=== PATIENT | male | born 1965 | race Caucasian/White ===

== ENCOUNTER 2025-01-02 12:27 | Inpatient (IN) | payer BC ==
[2025-01-02] MEDS: SODIUM CHLORIDE 0.9% 500 ML 500 ML IV STA (12:57)
[2025-01-02 13:10] LABS: Basophils # (A) 0.05 10*3/uL (0.00-0.10); Basophils % (A) 0.5 %; Eosinophils % (A) 0.9 %; HCT 40.9 % (39.6-50.0); HGB 14.4 g/dL (13.0-17.0); Lymphocytes # (A) 2.65 10*3/uL (0.90-5.00); Lymphocytes % (A) 25.1 %; MCH 31.2 pg (27.0-32.0); MCHC 35.2 g/dL (32.0-37.0); MCV 88.5 fL (80.0-97.0); Mean Platelet Volume 8.8 fL (9.5-12.2); Monocytes # (A) 0.63 10*3/uL (0.20-1.00); Neutrophils % (A) 67.2 %; Platelet Count 270 10*3/uL (140-440); RBC 4.62 10*6/uL (4.40-5.60); RDW 13.7 % (11.5-14.5); WBC 10.56 10*3/uL (4.50-10.00)
[2025-01-02 13:25] LABS: ALT 20 U/L (4-49); AST 21 U/L (17-59); African American GFR (CKD) >90 (>60 ml/min/1.73 sqM); Albumin 4.5 g/dL (3.5-5.0); Alkaline Phosphatase 67 U/L (38-126); Anion Gap 7 mmol/L; Blood Urea Nitrogen 17 mg/dL (9-20); Calcium 9.7 mg/dL (8.4-10.2); Carbon Dioxide 26 mmol/L (22-30); Chloride 103 mmol/L (98-107); Creatine Kinase 140 U/L (55-170); Glucose 175 mg/dL (74-99); Non-African American GFR(CKD) >90 (>60 ml/min/1.73 sqM); Potassium 4.5 mmol/L (3.5-5.1); Sodium 136 mmol/L (137-145); Total Bilirubin 0.4 mg/dL (0.2-1.3); Total Protein 7.5 g/dL (6.3-8.2)
[2025-01-02 13:27] LABS: INR 0.9 (<1.2); Partial Thromboplastin Time 25.9 sec (22.0-30.0); Prothrombin Time 10.3 sec (10.0-12.5)
--- NOTE | 2025-01-02 13:44 | ED ---
General Adult HPI - General Chief complaint: Neuro Symptoms/Deficit Stated complaint: L arm numbness, weakness Time Seen by Provider: 01/02/25 12:35 Source: patient, family, RN notes reviewed, old records reviewed Mode of arrival: ambulatory Limitations: no limitations - History of Present Illness Initial comments: This is a 59-year-old male who presents to the emergency department stating that he has had left arm weakness that has been progressing since August. Patient states has been seeing a chiropractor thinking it was nerve but the symptoms got worse so he decided come to the emergency department. Patient is also noted while he was working yesterday he felt like where he was standing was swaying [id number] which he is never experienced before and he does state today that he just does not feel right but he cannot really describe it. Patient denies a headache patient denies any focal numbness. Patient only weakness is in the lef t arm. Patient has a little bit of left-sided neck pain. Patient denies chest pain or pressure. Patient denies any difficulty breathing shortness of breath. Patient has any recent fever chills or cough. Patient has abdominal pain patient has nausea vomiting diarrhea - Related Data Home Medications Medication Instructions Recorded Confirmed No Known Home Medications 01/02/25 01/02/25 Allergies Allergy/AdvReac Type Severity Reaction Status Date / Time No Known Allergies Allergy Verified 01/02/25 14:04 Review of Systems ROS Statement: Those systems with pertinent positive or pertinent negative responses have been documented in the HPI. ROS Other: All systems not noted in ROS Statement are negative. Past Medical History History of Any Multi-Drug Resistant Organisms: None Reported Past Surgical History: Tonsillectomy Past Psychological History: No Psychological Hx Reported Smoking Status: Current every day smoker Past Alcohol Use History: Occasional Past Drug Use History: None Reported General Exam - General Exam Comments Initial Comments: GENERAL: Patient is well-developed and well-nourished. Patient is nontoxic and well- hydrated and is in no acute distress. ENT: Neck is soft and supple. No significant lymphadenopathy is noted. Oropharynx is clear. Moist mucous membranes. Neck has full range of motion without eliciting any pain. EYES: The sclera were anicteric and conjunctiva were pink and moist. Extraocular movements were intact and pupils were equal round and reactive to light. Eyelids were unremarkable. PULMONARY: Unlabored respirations. Good breath sounds bilaterally. No audible rales rhonchi or wheezing was noted. CARDIOVASCULAR: There is a regular rate and rhythm without any murmurs gallops or rubs. ABDOMEN: Soft and nontender with normal bowel sounds. SKIN: Skin is clear with no lesions or rashes and otherwise unremarkable. NEUROLOGIC: Patient is alert and oriented x3. Cranial nerves II through XII are grossly intact. Left arm weakness 2 out of 5. Normal speech, volume and content. Symmetrical smile. MUSCULOSKELETAL: Patient's left arm is got significant weakness in the client account manager and in right using the arm. Patient's weakness is 2 out of 5. LYMPHATICS: No significant lymphadenopathy is noted PSYCHIATRIC: Normal psychiatric evaluation. Limitations: no limitations Course Vital Signs 01/02/25 01/02/25 01/02/25 12:29 14:11 15:29 Temperature 98.1 F Pulse Rate 107 H 89 83 Respiratory 18 20 20 Rate Blood Pressure 170/96 155/93 165/112 O2 Sat by Pulse 97 96 96 Oximetry Medical Decision Making - Medical Decision Making EKG is interpreted by myself. EKG shows sinus rhythm at 98 bpm KS interval is 168 QRS is 92 QT interval is 326 QTc is 382. Patient EKG shows no ST segment elevation or depression. Was pt. sent in by a medical professional or institution (, ASHLEY, BOTTLING MACHINE OPERATOR, urgent care, hospital, or correction...) When possible be specific @ -No Did you speak to anyone other than the patient for history (EMS, parent, family, police, friend...)? What history was obtained from this source @ -No Did you review nursing and triage notes (agree or disagree)? Why? @ -I reviewed and agree with nursing and triage notes Were old charts reviewed (outside hosp., previous admission, EMS record, old EKG, old radiological studies, urgent care reports/EKG's, correction records)? Report findings @ -No old charts were reviewed Differential Diagnosis? @ -Differential CVA Ischemic stroke, hemorrhagic stroke, brain tumor, atypical migraine, Wernicke's encephalopathy, seizure, multiple sclerosis, meningitis, encephalitis, hypoglycemia, Guillain-Ng, electrolytes disturbance, myasthenia gravis.... This is not meant to be an all-inclusive list EKG interpreted by me (3pts min.). @ -As above X-rays interpreted by me (1pt min.). @ -None done CT interpreted by me (1pt min.). @ -CT of the brain shows a possible acute stroke in the right posterior frontal lobe. CT angiogram shows severe stenosis in bilateral internal carotid arteries U/S interpreted by me (1pt. min.). @ -None done What testing was considered but not performed or refused? (CT, X-rays, U/S, labs)? Why? @ -None What meds were considered but not given or refused? Why? @ -None Did you discuss the management of the patient with other professionals (professionals i.e. Dr., PA, BOTTLING MACHINE OPERATOR, lab, RT, psych nurse, social services technician, bakery worker conveyor line, teacher, marine safety officer, catalytic case operator)? Give summary @ -I spoke with Dr. Roberts doctor, will agreed to admit the patient. I spoke with Dr. Rivas she will agree to be on consult. Dr. Hill will also be on con sult. Was smoking cessation discussed for >3mins.? @ -No Was critical care preformed (if so, how long)? @ -No Were there social determinants of health that impacted care today? How? (Homelessness, low income, unemployed, alcoholism, drug addiction, transportation, low edu. Level, literacy, decrease access to med. care, long term, rehab)? @ -No Was there de-escalation of care discussed even if they declined (Discuss DNR or withdrawal of care, Hospice)? DNR status @ -No What co-morbidities impacted this encounter? (DM, HTN, Smoking, COPD, CAD, Cancer, CVA, ARF, Chemo, Hep., AIDS, mental health diagnosis, sleep apnea, morbid obesity)? @ -None Was patient admitted / discharged? Hospital course, mention meds given and route, prescriptions, significant lab abnormalities, going to OR and other pertinent info. @ -Patient continued to have left arm weakness but no other symptoms and no new symptoms. Patient will be admitted to Dr. Roberts with a consult to Dr. Sergio Rivas. Undiagnosed new problem with uncertain prognosis? @ -No Drug Therapy requiring intensive monitoring for toxicity (Heparin, Nitro, Insulin, Cardizem)? @ -No Were any procedures done? @ -No Diagnosis/symptom? @ -CVA Acute, or Chronic, or Acute on Chronic? @ -Acute Uncomplicated (without systemic symptoms) or Complicated (systemic symptoms)? @ -Complicated Side effects of treatment? @ -No Exacerbation, Progression, or Severe Exacerbation? @ -No Poses a threat to life or bodily function? How? (Chest pain, USA, [place], pneumonia, PE, COPD, DKA, ARF, appy, cholecystitis, CVA, Diverticulitis, Homicidal, Suicidal, threat to staff... and all critical care pts) @ -Yes this could lead to a further stroke and significant morbidity Diagnosis/symptom? @ -Carotid artery stenosis bilaterally Acute, or Chronic, or Acute on Chronic? @ -Acute Uncomplicated (without systemic symptoms) or Complicated (systemic symptoms)? @ -Complicate Side effects of treatment? @ -None Exacerbation, Progression, or Severe Exacerbation] @ -No Poses a threat to life or bodily function? @ -Yes this can lead to a stroke and morbidity or mortality - Lab Data Result diagrams: 01/02/25 12:55 01/02/25 12:55 Lab Results 01/02/25 01/02/25 01/02/25 Range/Units 12:55 12:55 12:55 WBC 10.56 H (4.50-10.00) 10*3/uL RBC 4.62 (4.40-5.60) 10*6/uL Hgb 14.4 (13.0-17.0) g/dL Hct 40.9 (39.6-50.0) % MCV 88.5 (80.0-97.0) fL MCH 31.2 (27.0-32.0) pg MCHC 35.2 (32.0-37.0) g/dL Plt Count 270 (140-440) 10*3/uL MPV 8.8 L (9.5-12.2) fL Immature Gran % (Auto) 0.3 % Neutrophils % 67.2 % Lymphocytes % 25.1 % Monocytes % 6.0 % Eosinophils % 0.9 % Basophils % 0.5 % Immature Gran # 0.03 (0.00-0.04) 10*3/uL Neutrophils # 7.10 (1.80-7.70) 10*3/uL Lymphocytes # 2.65 (0.90-5.00) 10*3/uL Monocytes # 0.63 (0.20-1.00) 10*3/uL Eosinophils # 0.10 (0.04-0.35) 10*3/uL Basophils # 0.05 (0.00-0.10) 10*3/uL PT 10.3 (10.0-12.5) sec INR 0.9 (<1.2) APTT 25.9 (22.0-30.0) sec Sodium 136 L (137-145) mmol/L Potassium 4.5 (3.5-5.1) mmol/L Chloride 103 (98-107) mmol/L Carbon Dioxide 26 (22-30) mmol/L Anion Gap 7 mmol/L BUN 17 (9-20) mg/dL Creatinine 0.84 (0.66-1.25) mg/dL Est GFR (CKD-EPI)AfAm >90 (>60 ml/min/1.73 sqM) Est GFR (CKD-EPI)NonAf >90 (>60 ml/min/1.73 sqM) Glucose 175 H (74-99) mg/dL Calcium 9.7 (8.4-10.2) mg/dL Magnesium 2.0 (1.6-2.3) mg/dL Total Bilirubin 0.4 (0.2-1.3) mg/dL AST 21 (17-59) U/L ALT 20 (4-49) U/L Alkaline Phosphatase 67 (38-126) U/L Creatine Kinase 140 (55-170) U/L Troponin I (0.000-0.034) ng/mL Total Protein 7.5 (6.3-8.2) g/dL Albumin 4.5 (3.5-5.0) g/dL TSH 1.810 (0.465-4.680) mIU/L Influenza Type A (PCR) (Not Detectd) Influenza Type B (PCR) (Not Detectd) RSV (PCR) (Not Detectd) SARS-CoV-2 (PCR) (Not Detectd) 01/02/25 01/02/25 Range/Units 12:55 12:55 WBC (4.50-10.00) 10*3/uL RBC (4.40-5.60) 10*6/uL Hgb (13.0-17.0) g/dL Hct (39.6-50.0) % MCV (80.0-97.0) fL MCH (27.0-32.0) pg MCHC (32.0-37.0) g/dL Plt Count (140-440) 10*3/uL MPV (9.5-12.2) fL Immature Gran % (Auto) % Neutrophils % % Lymphocytes % % Monocytes % % Eosinophils % % Basophils % % Immature Gran # (0.00-0.04) 10*3/uL Neutrophils # (1.80-7.70) 10*3/uL Lymphocytes # (0.90-5.00) 10*3/uL Monocytes # (0.20-1.00) 10*3/uL Eosinophils # (0.04-0.35) 10*3/uL Basophils # (0.00-0.10) 10*3/uL PT (10.0-12.5) sec INR (<1.2) APTT (22.0-30.0) sec Sodium (137-145) mmol/L Potassium (3.5-5.1) mmol/L Chloride (98-107) mmol/L Carbon Dioxide (22-30) mmol/L Anion Gap mmol/L BUN (9-20) mg/dL Creatinine (0.66-1.25) mg/dL Est GFR (CKD-EPI)AfAm (>60 ml/min/1.73 sqM) Est GFR (CKD-EPI)NonAf (>60 ml/min/1.73 sqM) Glucose (74-99) mg/dL Calcium (8.4-10.2) mg/dL Magnesium (1.6-2.3) mg/dL Total Bilirubin (0.2-1.3) mg/dL AST (17-59) U/L ALT (4-49) U/L Alkaline Phosphatase (38-126) U/L Creatine Kinase (55-170) U/L Troponin I <0.012 (0.000-0.034) ng/mL Total Protein (6.3-8.2) g/dL Albumin (3.5-5.0) g/dL TSH (0.465-4.680) mIU/L Influenza Type A (PCR) Not Detected (Not Detectd) Influenza Type B (PCR) Not Detected (Not Detectd) RSV (PCR) Not Detected (Not Detectd) SARS-CoV-2 (PCR) Not Detected (Not Detectd) Critical Care Time Critical Care Time: Yes Total Critical Care Time: 35 Disposition Clinical Impression: Cerebrovascular accident (CVA), Carotid artery stenosis Disposition: ADMITTED IP TO THIS HOSP Referrals: None,Stated [Primary Care Provider] - 1-2 days Time of Disposition: 15:41
[2025-01-02 13:47] LABS: Influenza A Not Detected (Not Detectd); Influenza B Not Detected (Not Detectd); RSV Not Detected (Not Detectd)
--- NOTE | 2025-01-02 13:47 | XR ---
EXAMINATION TYPE: XR chest 2V DATE OF EXAM: 01/02/2025 1:40 PM COMPARISON: None. CLINICAL INDICATION: Male, 59 years old with history of altered mental status, TECHNIQUE: XR chest 2V view(s) obtained. FINDINGS: The heart size is normal. The pulmonary vasculature is normal. The lungs are clear. IMPRESSION: 1. No acute pulmonary process. [facility], , 01/02/2025 1:44 PM
--- NOTE | 2025-01-02 14:10 | CT ---
EXAMINATION TYPE: CT brain amada wo con DATE OF EXAM: 01/02/2025 COMPARISON: None CLINICAL INDICATION: Male, 59 years old with history of Neuro deficit, acute, stroke suspected; PHH, AMS TECHNIQUE: CT scan of the head and cervical spine are performed without contrast. CT DLP: 1450.[address] CTDI: mGy Automated exposure control for dose reduction was used. Findings: Head CT: Ventricles, basal cisterns and sulci over convexities within normal limits and there is no mass, mass effect or shift of midline structures. There is loss of the russ-white differentiation in the posterior right frontal lobe consistent with a developing acute infarct. There is no acute intra or extra-axial hemorrhage. Posterior fossa including the brainstem, fourth ventricle and cerebellar pontine angles are grossly n ormal. The intraorbital contents appear normal and symmetric. Visualized paranasal sinuses are well aerated. CT cervical spine: Craniovertebral junction relationships and prevertebral soft tissues are normal. The cervical vertebral segments are normal in height and alignment and there is no fracture subluxati on. There is marked anterior flowing osteophytes at the C5, C6 and C7 levels. There is mild disc space na rrowing at C5-6 and C6-7. At the C3-4 and C4-5 discs are well preserved in height. There is mild ante rior hypertrophic spurring indicating mild degenerative disc disease. There is mild degeneration of the uncovertebral joints at C5-6 and C6-7. The bony cervical canal is widely patent and there is no bony encroachment of the neural foramina. The paraspinal soft tissues unremarkable. IMPRESSION: 1. Head CT: Acute cortical and subcortical infarct in the posterior right frontal lobe. MRI would be useful for further evaluation. 2. No acute bleed or mass effect intracranially. 3. CT cervical spine: No acute trauma. Mild multilevel degenerative disc disease as described above. The emergency room physician Dr. Gutierres was notified as important finding by phone on 01/12/2025 at appr oximately 1:54 PM. [facility], Workstation: mobile mum, 01/02/2025 2:07 PM
--- NOTE | 2025-01-02 15:04 | CT ---
EXAMINATION TYPE: CT angio head neck DATE OF EXAM: 01/02/2025 COMPARISON: None CLINICAL INDICATION: Male, 59 years old with history of Neuro deficit, acute, stroke suspected; PHH, AMS TECHNIQUE: CTA scan of the head and neck is performed with IV Contrast, patient injected with 65 mL of Isovue 370, axial images are obtained, coronal and sagittal reformatted images are reviewed. 3D re constructed images are created on an independent workstation and reviewed. CT DLP: 574.[address] CTDI: mGy Automated exposure control for dose reduction was used. NASCET criteria was used in interpretation of this exam? FINDINGS: The brachiocephalic origins are widely patent. There is a critical string like medical stenosis in the proximal right internal carotid artery. There is a heavily calcified plaque in the left carotid bifurcation and there is a string-like" focal sten osis in the proximal left internal carotid artery. The vertebral arteries are patent and the left vertebral artery is dominant. Intracranially, there is no segmental occlusion, sizable aneurysm sac or vascular malformation. IMPRESSION: Critical focal string like stenoses in both the proximal right and left internal carotid arteries. Emergency room physician was notified as important finding [facility], , 01/02/2025 3:02 PM
[2025-01-02] MEDS ORDERED: ACETAMINOPHEN TAB 500 MG TAB PO PRN (15:59)
[2025-01-02] MEDS: ALPRAZolam 0.25 MG TAB PO PRN (16:21)
[2025-01-02] MEDS: ASPIRIN 325 MG TAB PO STA (16:21)
[2025-01-02] MEDS: NICOTINE 14MG/24HR PATCH TRANSDERM SCH (16:22)
--- NOTE | 2025-01-02 17:28 | P.CNNES ---
History of Present Illness Consult date: 01/02/25 Requesting physician: Andrea Gutierres Reason for Consult: cva History of Present Illness: This is a 59-year-old gentleman who presents to the emergency department because of aggressive worsening of the left arm weakness. Patient states that he has been having left arm weakness over the past 2 months that is progressively getting worse. He has left neck pain that radiates down all the way down to the entire hand that been going on for 2-month and he has been seeing a chiropractor as a result and has been having his neck manipulated as a result. He denies any neck manipulation prior to 2-month ago or prior to his symptoms. He denies any history of stroke. Patient denies any history of stroke. He denies any n umbness of the left upper extremity, any visual changes, any speech difficulty, any neck trauma. Denies any weakness or numbness in the lower extremity. He smokes cigarettes and 1 pack can last him up to 1 week. Denies any illicit drug use. He is not on any antiplatelet. Denies any history of atrial fibrillation. Some of the workup during this hospital visit consisted of: Blood pressure on initial presentation is 170/96. TSH is 1.810 I reviewed the rest of the lab workup CT of the head is reported as acute cortical and subcortical infarct in the posterior right frontal lobe. MRI would be useful for further evaluation. No acute bleed or mass effect intracranial. I personally reviewed CT and I felt there is a ?hypodensity in the right frontal but I would have expected it to be more prominent since it has been going on for [address] cervical spine is reported as no acute trauma. Mild multilevel degenerative disc disease. CT angiography of the head and neck is reported as critical focal string-like stenosis in both proximal right and left internal carotid artery. No IV thrombolytics since outside the window and the risk outweigh the benefit. Review of Systems As per HPI Past Medical History History of Any Multi-Drug Resistant Organisms: None Reported Past Surgical History: Tonsillectomy Past Psychological History: No Psychological Hx Reported Smoking Status: Current every day smoker Past Alcohol Use History: Occasional Past Drug Use History: None Reported Medications and Allergies Home Medications Medication Instructions Recorded Confirmed Type No Known Home Medications 01/02/25 01/02/25 History Allergies Allergy/AdvReac Type Severity Reaction Status Date / Time No Known Allergies Allergy Verified 01/02/25 14:04 Physical Examination - Vital Signs Vital Signs: Vital Signs Temp Pulse Resp BP Pulse Ox 01/02/25 16:22 85 20 147/89 96 01/02/25 15:29 83 20 165/112 96 01/02/25 14:11 89 20 155/93 96 01/02/25 12:29 98.1 F 107 H 18 170/96 97 Intake and Output 01/02/25 01/02/25 01/02/25 06:59 14:59 22:59 Other: Weight 86.183 kg GENERAL: The patient is lying in bed and is not in acute distress. NEUROLOGICAL: Higher mental function: The patient is awake, alert, oriented to self, place and time. Patient is following commands. No aphasia and no neglect. Cranial nerves: The pupils are round, equal and reactive to light and acco mmodation. Visual sheriff are full to confrontation throughout. Extraocular movement is intact no nystagmus is noted. Facial sensation is normal to touch throughout. The facial strength is normal throughout. Hearing is normal bilaterally to hand rub. Tongue is midline and moved [id number] without any difficulty. No dysarthria is noted. Shoulder shrug is normal bilaterally. Motor: The strength is left upper extremity predominately left arm is 4-4+, left hand client consultant is 3-4- and left finger extension are 1-2. Otherwise strength are 5 over 5 throughout. Decrease tone in the left upper extremity. Normal bulk. Cerebellum: Normal finger to nose on the right but hard to perform on the left because of weakness. Sensation: Sensation is normal to touch throughout. Reflexes (right/left): brisk reflex of the uppers and patellar 3+. Ankles are 2+. Plantars are mute bilaterally. Results - Laboratory Findings CBC and BMP: 01/02/25 12:55 01/02/25 12:55 Abnormal Lab Findings: Abnormal Labs 01/02/25 01/02/25 12:55 12:55 WBC 10.56 H MPV 8.8 L Sodium 136 L Glucose 175 H Assessment and Plan Assessment: This is a 59-year-old gentleman who presents to the emergency department because of worsening weakness of the left upper extremity,. He has been having weakness over the left upper extremity with left neck pain and the neck pain radiates down over to the left hand and his he has been seeing a chiropractor over the [facility] 2 months as a result. CT of the head is reported as acute cortical to subcortical infarct in the posterior right frontal and the CT angiography is reported as critical focal string-like stenosis in both proximal bilateral carotid arteries. Left upper extremity weakness predominantly in the left forearm and hand with left neck pain with radicular symptoms: CT of the head reveals suspicious of acute to subacute stroke over the right frontal significant carotid stenosis this seems more suspicious for subacute stroke. I am also concerned about cervical radiculopathy/myelopathy Significant bilateral carotid stenosis on CT angiography Hypertensive urgency Tobacco use Plan: MRI of the brain with and without is ordered by the primary team I ordered MRI of the cervical spine In the ED team the patient was given aspirin 325 once then was started on aspirin 325 daily as well as Plavix 75 mg daily. Prior to this patient was not on any antiplatelet. I started the patient on Lipitor 80 mg nightly for secondary stroke prophylaxis Continue neurochecks Cardiac monitoring I ordered a 2D echo Lipid panel is ordered and is pending If MRI of the cervical spine reveals significant cervical stenosis and myelopathy then recommend orthopedic consultation PT OT and [facility] are consulted Vascular surgery team is consulted Patient was counseled on tobacco cessation Defer the rest of the medical management the primary and other For DVT prophylaxis patient started on subcu heparin The plan is discussed with patient and ED physician. Thank you for the consultation. Time with Patient: Greater than 30
[2025-01-02] MEDS: ATORVASTATIN 80 MG TAB PO SCH (20:43)
[2025-01-02] MEDS: HEPARIN SODIUM,PORCINE 5,000 UNIT/ML 1 ML VIAL SQ SCH (20:43)
--- NOTE | 2025-01-02 20:54 | P.GSCN ---
History of Present Illness Consult date: 01/02/25 History of present illness: Jose is a 59-year-old male who presents to the ER today with worsening left arm weakness. He states that initially in the past 2 months on September 17 he woke up with weakness of his left extremity that was new in onset that he had never had previously. Initially thought was due to sleeping the way he did. Due to this he initially tried chiropractic therapies with neck manipulations and has had continued and worsening of his weakness through his arm to a point where he cannot perform any fine motor skill. He does continue to smoke. He denies any issues with the lower extremity, history of trauma or visual changes or speech difficulty. Past Medical History History of Any Multi-Drug Resistant Organisms: None Reported Past Surgical History: Tonsillectomy Past Psychological History: No Psychological Hx Reported Smoking Status: Current every day smoker Past Alcohol Use History: Occasional Past Drug Use History: None Reported Medications and Allergies Home Medications Medication Instructions Recorded Confirmed Type No Known Home Medications 01/02/25 01/02/25 History Allergies Allergy/AdvReac Type Severity Reaction Status Date / Time No Known Allergies Allergy Verified 01/02/25 14:04 Surgical - Exam Vital Signs Temp Pulse Resp BP Pulse Ox 98.1 F 107 H 18 170/96 97 01/02/25 12:29 01/02/25 12:29 01/02/25 12:29 01/02/25 12:29 01/02/25 12:29 GENERAL:Patent is well-developed and well-nourished. Patient is nontoxic and well-hydrated and is in no acute distress ENT:Neck is soft and supple. No significant lymphadenopathy is noted. EYES:The sclera were anicteric and conjunctiva were pink and moist PULMONARY:Unlabored respirations. CARDIOVASCULAR:There is a regular rate and rhythm BDOMEN:Soft and nontender with normal bowel sounds. SKIN:Skin is clear with no lesions or rashes and otherwise unremarkable. NEUROLOGIC:Patient is alert and oriented x3. Cranial nerves II through XII are grossly intact. Left arm weakness 2 out of 5. Difficulty with pincer LYMPHATICS:No significant lymphadenopathy is noted PSYCHIATRIC:Normal psychiatric evaluation. VASCULAR: Palpable radial, femoral, dorsalis pedis and posterior tibial pulses bilaterally Results - Labs 01/02/25 12:55 01/02/25 12:55 Abnormal Lab Results - Last 24 Hours (Table) 01/02/25 01/02/25 Range/Units 12:55 12:55 WBC 10.56 H (4.50-10.00) 10*3/uL MPV 8.8 L (9.5-12.2) fL Sodium 136 L (137-145) mmol/L Glucose 175 H (74-99) mg/dL Diabetes panel 01/02/25 Range/Units 12:55 Sodium 136 L (137-145) mmol/L Potassium 4.5 (3.5-5.1) mmol/L Chloride 103 (98-107) mmol/L Carbon Dioxide 26 (22-30) mmol/L BUN 17 (9-20) mg/dL Creatinine 0.84 (0.66-1.25) mg/dL Glucose 175 H (74-99) mg/dL Calcium 9.7 (8.4-10.2) mg/dL AST 21 (17-59) U/L ALT 20 (4-49) U/L Alkaline Phosphatase 67 (38-126) U/L Total Protein 7.5 (6.3-8.2) g/dL Albumin 4.5 (3.5-5.0) g/dL Thyroid panel 01/02/25 Range/Units 12:55 TSH 1.810 (0.465-4.680) mIU/L Calcium panel 01/02/25 Range/Units 12:55 Calcium 9.7 (8.4-10.2) mg/dL Albumin 4.5 (3.5-5.0) g/dL Pituitary panel 01/02/25 Range/Units 12:55 Sodium 136 L (137-145) mmol/L Potassium 4.5 (3.5-5.1) mmol/L Chloride 103 (98-107) mmol/L Carbon Dioxide 26 (22-30) mmol/L BUN 17 (9-20) mg/dL Creatinine 0.84 (0.66-1.25) mg/dL Glucose 175 H (74-99) mg/dL Calcium 9.7 (8.4-10.2) mg/dL TSH 1.810 (0.465-4.680) mIU/L Adrenal panel 01/02/25 Range/Units 12:55 Sodium 136 L (137-145) mmol/L Potassium 4.5 (3.5-5.1) mmol/L Chloride 103 (98-107) mmol/L Carbon Dioxide 26 (22-30) mmol/L BUN 17 (9-20) mg/dL Creatinine 0.84 (0.66-1.25) mg/dL Glucose 175 H (74-99) mg/dL Calcium 9.7 (8.4-10.2) mg/dL Total Bilirubin 0.4 (0.2-1.3) mg/dL AST 21 (17-59) U/L ALT 20 (4-49) U/L Alkaline Phosphatase 67 (38-126) U/L Total Protein 7.5 (6.3-8.2) g/dL Albumin 4.5 (3.5-5.0) g/dL Assessment and Plan Assessment: Left upper extremity weakness High-grade bilateral internal carotid artery, occlusion of the right ICA with quick response Tobacco abuse Plan: Long session with the patient and family at the bedside. Is very feasible that his issues are related to his high-grade right internal carotid artery stenosis but have been worsening over time. I do agree with antiplatelet therapy. I personally reviewed the CT scan image and do agree that there is a high-grade stenosis with a focal area of potential occlusion. Will await MRI findings, in the meantime we will get cardiology involved as I anticipate the patient will likely need carotid endarterectomy given his young age. He is otherwise healthy without any exertional angina. Neuro evaluating C-spine as well for possible nerve compression. Will continue to monitor, potentially will do surgery for carotid endarterectomy this admission, right carotid on Tuesday if indicated. All questions were answered. The patient and family seemingly understand and are willing to proceed with this plan
--- NOTE | 2025-01-02 22:32 | US ---
EXAMINATION TYPE: US carotid duplex BILAT DATE OF EXAM: 01/02/2025 COMPARISON: CTA 01/02/25 CLINICAL INDICATION: Male, 59 years old with history of carotid stenosis; carotid stenosis. left arm weakness Additional History: .... TECHNIQUE: Grayscale, color Doppler and spectral Doppler evaluation of the bilateral carotid systems and vertebral arteries. Indirect Doppler criteria was utilized. FINDINGS: EXAM MEASUREMENTS: RIGHT: Peak Systolic Velocity (PSV) cm/sec ----- Right CCA: 69.3 ----- Right ICA: 574.5 ----- Right ECA: 153.1 ICA/CCA ratio: 8.3 RIGHT: End Diastole cm/sec ----- Right CCA: 16.8 ----- Right ICA: 225.0 ----- Right ECA: 27.6 LEFT: Peak Systolic Velocity (PSV) cm/sec ----- Left CCA: 66.9 ----- Left ICA: 423.8 ----- Left ECA: 171.7 ICA/CCA ratio: 6.3 LEFT: End Diastole cm/sec ----- Left CCA: 13.1 ----- Left ICA: 159.9 ----- Left ECA: 171.7 VERTEBRALS (direction of flow): Right Vertebral: Antegrade Left Vertebral: Antegrade Rhythm: Normal TRACTION POWER ENGINEER NOTES: plaque seen bilateral bifurcations/ ICAs. Severely elevated velocities seen within bilateral ICA. Color Doppler imaging shows patency with blood flow throughout the carotid artery. Spectral waveforms are within normal limits. IMPRESSION: Right: Near occlusion of the carotid bifurcation. CT angiography recommended for confirmation. Left: Near occlusion of the carotid bifurcation. CT angiography recommended for confirmation. Criteria for Assigning % of Stenosis / Diameter reduction (Estimation based on the indirect measurements of the internal carotid artery velocities (ICA PSV). 1. Normal (no stenosis)=ICA PSV < 180 cm/s: ratio < 2.0: ICA EDV<40 cm/s. 2. Less than 50% stenosis=ICA PSV < 180 cm/s: ratio < 2.0: ICA EDV<40 cm/s. 3. 50 to 69% stenosis=ICA PSV of 180 to 230 cm/s: ration 2.0 ? 4.0: ICA EDV 40-100 cm/s. PSV 125-180 cm/sec and ICA/CCA PSV Ratio ? 2.0 is also consistent with 50-69% stenosis 4. Greater than 70% stenosis to near occlusion= ICA PSV > 230 cm/s: ratio > 4.0: ICA EDV > 100 cm/s. 5. Near occlusion= ICA PSV velocities may be low or undetectable: variable ratio and ICA EDV. 6. Total occlusion=unable to detect flow. [facility], , 01/02/2025 10:30 PM
--- NOTE | 2025-01-03 02:56 | HP ---
HISTORY AND PHYSICAL CHIEF COMPLAINT: Weakness of the left arm. HISTORY OF PRESENT ILLNESS: This is a 59-year-old gentleman with a past medical history of tonsillectomy, not being following Primary Physician in an outpatient setting, was apparently having difficulty in the weakness of the left arm. The patient went to chiropractor about almost a month and was doing neck adjustments. Because of lack of improvement, the patient came to [facility] and found to have critical stenosis of both internal carotid arteries on the proximity on the right and left and the patient was admitted for further evaluation and treatment. There is no history of any fever, rigors, or chills at this time. The blood pressure is elevated. The patient has a history of smoking. WBC 10.56. PAST MEDICAL HISTORY: History of tonsillectomy. Rest of the history and rest of the chart is also reviewed. HOME MEDICATIONS: None. ALLERGIES: None. FAMILY HISTORY: No history of strokes in the family. SOCIAL HISTORY: Occasional alcohol, smoking. REVIEW OF SYSTEMS: A 14-point review of systems is negative except as mentioned earlier. PHYSICAL EXAMINATION: VITAL SIGNS: Pulse is 83, blood pressure 165/112, respirations 20, temperature 98.1. HEENT: Conjunctivae normal. NECK: No JVD. No neck bruit. CARDIOVASCULAR: S1, S2. RESPIRATIONS: Breath sounds diminished at the bases. ABDOMEN: Soft, nontender. LEGS: No edema. NERVOUS SYSTEM: Minimal weakness of the left upper limb present, diminished. SKIN: No ulcer, rash, bleeding. JOINTS: No active deforming arthropathy. LABORATORY DATA: Reviewed. ASSESSMENT: 1. Left upper arm weakness, possible acute stroke. 2. Bilateral carotid artery stenosis, rule out carotid dissection. 3. Tonsillectomy. 4. History of nicotine dependence. 5. Hypertension. RECOMMENDATIONS AND DISCUSSION: This is a 59-year-old gentleman, who presented with multiple complex medical issues, we will monitor the patient closely. Antiplatelet agents. Neurology and Vascular Surgery consultation. Otherwise, I would also recommend MRI of the carotid arteries with possibility of dissection. Prognosis guarded. Discussed with family. Further recommendations to follow. MMODL / IJN: [id number] /
[2025-01-03] MEDS: PANTOPRAZOLE 40 MG TABLET PO SCH (05:58)
[2025-01-03] MEDS: ASPIRIN 325 MG TAB PO SCH (08:18)
[2025-01-03] MEDS: CLOPIDOGREL 75 MG TAB PO SCH (08:18)
[2025-01-03 08:40] LABS: Basophils # (A) 0.05 10*3/uL (0.00-0.10); Basophils % (A) 0.5 %; Eosinophils # (A) 0.13 10*3/uL (0.04-0.35); Eosinophils % (A) 1.4 %; HCT 38.6 % (39.6-50.0); HGB 13.5 g/dL (13.0-17.0); Lymphocytes # (A) 3.31 10*3/uL (0.90-5.00); Lymphocytes % (A) 36.2 %; MCH 31.2 pg (27.0-32.0); MCV 89.1 fL (80.0-97.0); Mean Platelet Volume 8.8 fL (9.5-12.2); Monocytes # (A) 0.73 10*3/uL (0.20-1.00); Neutrophils # (A) 4.91 10*3/uL (1.80-7.70); Neutrophils % (A) 53.7 %; Platelet Count 251 10*3/uL (140-440); RBC 4.33 10*6/uL (4.40-5.60); RDW 13.9 % (11.5-14.5); WBC 9.15 10*3/uL (4.50-10.00)
[2025-01-03 09:10] LABS: ALT 19 U/L (4-49); AST 20 U/L (17-59); African American GFR (CKD) >90 (>60 ml/min/1.73 sqM); Alkaline Phosphatase 54 U/L (38-126); Anion Gap 7 mmol/L; Blood Urea Nitrogen 15 mg/dL (9-20); Calcium 9.7 mg/dL (8.4-10.2); Carbon Dioxide 25 mmol/L (22-30); Chloride 104 mmol/L (98-107); Glucose 135 mg/dL (74-99); Non-African American GFR(CKD) >90 (>60 ml/min/1.73 sqM); Potassium 4.4 mmol/L (3.5-5.1); Sodium 136 mmol/L (137-145); Total Bilirubin 0.7 mg/dL (0.2-1.3); Total Protein 6.9 g/dL (6.3-8.2)
--- NOTE | 2025-01-03 10:24 | P.CRDCN ---
History of Present Illness Consult date: 01/03/25 Reason for Consult (text): Cardiac clearance for carotid endarterectomy History of present illness: This is a 59-year-old male does not follow with a academic affairs director and does not follow with PCP. He has a past medical history of tobacco use and dependence. We have been asked to evaluate the patient for cardiac clearance for carotid endarterectomy which is scheduled either Tuesday or Tuesday this . Patient states that he presented to the hospital due to weakness of the left arm which he has never had in the past. He states he was sleeping and he woke up to find his left arm weak. He still has some weakness but it has improved. Patient states he is normally physically active and does not experience chest pain with activity. He denies palpitations, dizziness, PND, orthopnea. No shortness of breath, dizziness or lightheadedness. He has had physical examinations for work and his blood pressure has been at that time. He denies having any blood in his urine or stool. No previous history of stroke or seizure. Blood pressure 149/90, heart rate 86, pulse ox 95% on room air. Patient has been started on a full-strength aspirin, Plavix, atorvastatin. Patient is scheduled for MRI of the brain and cervical spine. -EKG: Sinus rhythm with no acute ST-T wave changes. -Chest x-ray: No acute process. -CT brain and cervical spine: Acute cortical and subcortical infarct in the posterior right frontal lobe. No acute bleed or mass effect. CT of the cervical spine showed no acute trauma. Mild multilevel degenerative disc disease. -CTA of the head and neck: Critical focal string-like stenosis in both the proximal right and left internal carotid arteries. -Carotid duplex: Near occlusion of the bilateral carotid bifurcations. -Laboratory studies: WBC 9, hemoglobin 13.5, sodium 136, potassium 4.4, BUN 15 creatinine 0.81. Troponin negative x 1. C-reactive protein less than 0.5. TSH 1.81. Cepheid viral panel not detected. -Home cardiac medications: None Review Of Systems: At the time of my exam: CONSTITUTIONAL: Denies fever or chills. Reports left arm weakness. HEENT: Denies blurred vision, vision changes, or eye pain. Denies hemoptysis CARDIOVASCULAR: Denies chest pain. Denies orthopnea. Denies PND. Denies palpitations RESPIRATORY: Denies shortness of breath. GASTROINTESTINAL: Denies abdominal pain. Denies nausea or vomiting. HEMATOLOGIC: Denies bleeding disorders. GENITOURINARY: Denies any blood in urine. SKIN: Denies puritis. Denies rash. Physical examination: Gen: This is a 59-year-old male in no acute distress VS: reviewed HEENT: Head is atraumatic, normocephalic. Pupils equal, round. Sclerae is anicteric. NECK: Supple. No JVD. Bilateral carotid bruit. LUNGS: Clear to auscultation. No wheezes or rhonchi. No intercostal retractions. HEART: Regular rate and rhythm. No murmur. ABDOMEN: Soft No tenderness. EXTREMITIES: No pedal edema. No calf tenderness. NEUROLOGICAL: Patient is awake, alert and oriented x3. Assessment: Acute/subacute cerebral infarct in the posterior right frontal lobe presenting with left upper extremity weakness Critical stenosis of both the right and left internal carotid arteries Hypertension Tobacco use and dependence Plan: Patient has been started on full-strength aspirin, Plavix, atorvastatin 80 mg daily Continue nicotine patch Obtain stress echocardiogram today Obtain 2-D echocardiogram and Doppler study to assess cardiac structure and function Further recommendations to follow based upon clinical course Smoking cessation. Patient will be provided the [place] quit line information at discharge. Thank you kindly for this consultation. Nurse practitioner note has been reviewed, I agree with documented findings and plan of care. Patient was seen and examined. Past Medical History History of Any Multi-Drug Resistant Organisms: None Reported Past Surgical History: Tonsillectomy Past Psychological History: No Psychological Hx Reported Smoking Status: Current every day smoker Past Alcohol Use History: Occasional Past Drug Use History: None Reported Medications and Allergies Home Medications Medication Instructions Recorded Confirmed Type No Known Home Medications 01/02/25 01/02/25 History Allergies Allergy/AdvReac Type Severity Reaction Status Date / Time No Known Allergies Allergy Verified 01/02/25 14:04 Physical Exam Vitals: Vital Signs Temp Pulse Pulse Resp BP BP Pulse Ox 01/03/25 04:00 98.1 F 83 16 134/75 95 01/03/25 01:42 72 16 01/02/25 23:36 98.0 F 67 16 150/84 95 01/02/25 22:50 79 20 160/88 99 01/02/25 18:41 68 20 143/89 96 01/02/25 16:22 85 20 147/89 96 01/02/25 15:29 83 20 165/112 96 01/02/25 14:11 89 20 155/93 96 01/02/25 12:29 98.1 F 107 H 18 170/96 97 Intake and Output 01/02/25 01/03/25 01/03/25 22:59 06:59 14:59 Intake Total 240 10 0 Balance 240 10 0 Intake: IV 10 Invasive Line 1 10 Oral 240 0 Other: Voiding Method Toilet # Voids 1 Weight 81.4 kg Results 01/03/25 08:07 01/03/25 08:07 Cardiac Enzymes 01/02/25 01/02/25 Range/Units 12:55 12:55 AST 21 (17-59) U/L Troponin I <0.012 (0.000-0.034) ng/mL Coagulation 01/02/25 Range/Units 12:55 PT 10.3 (10.0-12.5) sec APTT 25.9 (22.0-30.0) sec CBC 01/02/25 01/03/25 Range/Units 12:55 08:07 WBC 10.56 H 9.15 (4.50-10.00) 10*3/uL RBC 4.62 4.33 L (4.40-5.60) 10*6/uL Hgb 14.4 13.5 (13.0-17.0) g/dL Hct 40.9 38.6 L (39.6-50.0) % Plt Count 270 251 (140-440) 10*3/uL Comprehensive Metabolic Panel 01/02/25 Range/Units 12:55 Sodium 136 L (137-145) mmol/L Potassium 4.5 (3.5-5.1) mmol/L Chloride 103 (98-107) mmol/L Carbon Dioxide 26 (22-30) mmol/L BUN 17 (9-20) mg/dL Creatinine 0.84 (0.66-1.25) mg/dL Glucose 175 H (74-99) mg/dL Calcium 9.7 (8.4-10.2) mg/dL AST 21 (17-59) U/L ALT 20 (4-49) U/L Alkaline Phosphatase 67 (38-126) U/L Total Protein 7.5 (6.3-8.2) g/dL Albumin 4.5 (3.5-5.0) g/dL Current Medications Generic Name Dose Route Start Last Admin Trade Name Timothy PRN Reason Stop Dose Admin Acetaminophen 500 mg 01/02/25 15:59 Acetaminophen Tab 500 Mg Tab PO Q6HR PRN Fever and/ or Pain Hydrocodone Bitart/Acetaminophen 1 each 01/02/25 15:59 Hydrocodone/Apap 5-325mg 1 Each Tab PO Q6HR PRN Pain Alprazolam 0.25 mg 01/02/25 15:59 01/02/25 16:21 Alprazolam 0.25 Mg Tab PO 0.25 mg TID PRN Administration Anxiety Aspirin 325 mg 01/03/25 09:00 01/03/25 08:18 Aspirin 325 Mg Tab PO 325 mg DAILY SALVATORE Administration Atorvastatin Calcium 80 mg 01/02/25 21:00 01/02/25 20:43 Atorvastatin 80 Mg Tab PO 80 mg HS SALVATORE Administration Clopidogrel Bisulfate 75 mg 01/03/25 09:00 01/03/25 08:18 Clopidogrel 75 Mg Tab PO 75 mg DAILY SALVATORE Administration Heparin Sodium (Porcine) 5,000 unit 01/02/25 21:00 01/03/25 08:19 Heparin Sodium,Porcine 5,000 Unit/Ml 1 Ml Vial SQ 5,000 unit Q12HR SALVATORE Administration Nicotine 1 patch 01/02/25 16:00 01/03/25 08:19 Nicotine 14mg/24hr Patch TRANSDERM 1 patch DAILY SALVATORE Administration Pantoprazole Sodium 40 mg 01/03/25 07:30 01/03/25 05:58 Pantoprazole 40 Mg Tablet PO Not Given [facility] Intake and Output 01/02/25 01/03/25 01/03/25 22:59 06:59 14:59 Intake Total 240 10 0 Balance 240 10 0 Intake: IV 10 Invasive Line 1 10 Oral 240 0 Other: Voiding Method Toilet # Voids 1 Weight 81.4 kg 01/03/25 08:07 01/02/25 12:55
--- NOTE | 2025-01-03 11:06 | CA ---
Transthoracic Echo Report Name: Jose Cook Age: 59 Gender: M : 1965 Exam Date: 01/03/2025 07:34 Exam Location: [facility] Ht (in): 70 Wt (lb): 190 Ordering Physician: Dorian Hill MD Attending/Referring Phys: Reinstatement Clerk Ysabel Lazo RDCS Procedure CPT: Indications: stroke Cardiac Hx: Technical Quality: Good Contrast 1: Total Dose (mL): Contrast 2: Total Dose (mL): MEASUREMENTS (Male / Female) Normal Values 2D ECHO LV Diastolic Diameter PLAX 4.7 cm 4.2 - 5.9 / 3.9 - 5.3 cm LV Systolic Diameter PLAX 3.2 cm IVS Diastolic Thickness 1.0 cm 0.6 - 1.0 / 0.6 - 0.9 cm LVPW Diastolic Thickness 1.1 cm 0.6 - 1.0 / 0.6 - 0.9 cm LV Relative Wall Thickness 0.5 RV Internal Dim ED PLAX 3.7 cm LVOT Diameter 1.8 cm LA Systolic Diameter LX 3.6 cm 3.0 - 4.0 / 2.7 - 3.8 cm LV Diastolic Volume MOD 4C 92.8 cm??? LV Systolic Volume MOD 4C 42.1 cm??? LV Ejection Fraction MOD 4C 54.7 % LV Diastolic Length 4C 10.3 cm LV Systolic Length 4C 8.4 cm LA Volume 34.9 cm??? 18 - 58 / 22 - 52 cm??? LA Volume Index 16.8 cm???/m??? 16 - 28 cm???/m??? DOPPLER MV Area PHT 3.3 cm??? Mitral E Point Velocity 55.8 cm/s Mitral A Point Velocity 76.0 cm/s Mitral E to A Ratio 0.7 MV Deceleration Time 233.2 ms TR Peak Velocity 194.8 cm/s TR Peak Gradient 15.2 mmHg Right Atrial Pressure 10.0 mmHg Pulmonary Artery Systolic Pressu 25.2 mmHg Right Ventricular Systolic Press 25.2 mmHg FINDINGS Left Ventricle Left ventricular ejection fraction is estimated at 50%. Normal Left ventricular size, wall thickness, systolic function with no obvious regional wall motion abnormalities. Right Ventricle Normal right ventricular size and function. Right ventricular systolic pressure within normal limits. Right Atrium Normal right atrial size. Left Atrium Normal left atrial size. Mitral Valve Mitral annular calcification. No mitral stenosis. No mitral regurgitation. Aortic Valve Trileaflet aortic valve. No aortic stenosis. No aortic regurgitation. Tricuspid Valve Structurally normal tricuspid valve. No tricuspid stenosis. Trace tricuspid regurgitation. Pulmonic Valve Structurally normal pulmonic valve. No pulmonic stenosis. No pulmonic regurgitation. Pericardium No pericardial effusion. Aorta Normal size aortic root and proximal ascending aorta. CONCLUSIONS Low normal LV systolic function with EF at 50% Poorly visualized intracardiac valves Normal pulmonary artery systolic pressure No pericardial effusion Previewed by: Dr. Nico Fontana MD (Electronically Signed) Final Date: 03 January 2025 11:06
--- NOTE | 2025-01-03 11:49 | MR ---
EXAMINATION TYPE: MR cervical spine wo con DATE OF EXAM: 01/03/2025 11:11 AM COMPARISON: None. CLINICAL INDICATION: Male, 59 years old with history of left arm weakness and neck pain, Left arm wea kness and neck pain TECHNIQUE: Multiplanar multiecho imaging on a 3.0 Miriam magnet is performed through the cervical spin e. IV Contrast: mL (None, if empty) FINDINGS: The craniovertebral junction is normal. Vertebral body alignment is normal. Vertebral misa dy heights are preserved. Some disc desiccation is likely present throughout the cervical spine C7-T1: No focal disc herniation or significant disc bulge is evident. No spinal canal stenosis or n eural foraminal stenosis is present. C6-7: There is mild broad-based disc bulge with anterior thecal sac contact. No cord contact or spina l canal stenosis present. Neural foramen are patent.. C5-6: Mild disc bulge is present with mild anterior thecal sac compression. No cord contact spinal ca nal stenosis or neural foraminal stenosis.. C4-5: Minimal central broad-based bulge may be present without cord contact or spinal canal stenosis. Neural foramen are patent. C3-4: Mild disc bulge is present with mild to moderate anterior thecal sac compression. This comes in close approximation to the spinal cord. No cord contact or deformity is evident.. C2-3: No focal disc herniation or significant disc bulge is evident. No spinal canal stenosis or fortunato ral foraminal stenosis is present. IMPRESSION: 1. Mild disc bulging without cord contact or spinal canal stenosis. [facility], , 01/03/2025 11:47 AM
--- NOTE | 2025-01-03 12:19 | MR ---
EXAMINATION TYPE: MR brain wo/w mraneck wo/wcon DATE OF EXAM: 01/03/2025 11:11 AM COMPARISON: None. CLINICAL INDICATION: Male, 59 years old with history of bilateral carotid dissection, Bilateral carot id dissection TECHNIQUE: Multiplanar, multiecho imaging on a 3.0 Miriam magnet is performed through the brain. Stud y is performed within 24 hours of arrival to the hospital.Multiplanar, multiecho imaging on a 3.0 Madonna la magnet is performed through the knee. IV Contrast: 8 mL Gadobutrol (None, if empty) FINDINGS: The craniovertebral junction is normal. The pituitary is normal. Diffusion-weighted imaging is performed. There is a punctate hyperintensity in the subcortical white matter of the right watershed region. Findings can be compatible with an acute ischemic change. Sylvester tional punctate hyperintensity is within the subcortical white matter right frontal lobe. Image 17. T here is cortical and subcortical hyperechoic intensities within the centrum semiovale and right front al lobe compatible with acute ischemic changes. There is a punctate cortical hyperintensity within the left vertex. Image 28 There are scattered punctate areas of hyperintensity on T2 and Inversion Recovery weighted sequences. These areas correlate with the acute ischemic changes. Ventricles and sulci are appropriate for the patient age. Following contrast administration there is some enhancement along the cortex of the right frontal lob e. This may be somewhat luxury perfusion of the cortical infarct in this region. Vasogenic edema is n ot identified. Suspicious enhancement is not otherwise evident. IMPRESSION: 1. Right frontal lobe cortical and subcortical ischemic changes. Some luxury perfusion enhancement is likely present at this level. Additional subcortical ischemic changes are within the right watershed and inferior right frontal lobe. Solitary ischemic changes within the subcortical left vertex. EXAMINATION TYPE: MRA neck wo/wcon DATE OF EXAM: 01/03/2025 11:11 AM COMPARISON: None. CLINICAL INDICATION: Male, 59 years old with history of bilaterla carotid dissection, Bilateral carot id dissection TECHNIQUE: 3-D [id number] imaging is performed through the bilateral carotid arteries. Vertebral arteries are included. Three-D reconstructed images rotated on the computer are reviewed. Slab artifa ct is evident. Source images are reviewed. FINDINGS: Vertebral arteries are patent to the skull base. Common carotid arteries are patent. There is a small flow gap within the proximal right internal carotid artery suggesting a significant stenosis of greater than 70%. Velocity dropped on ultrasound within the right internal carotid arter y suggests a more critical stenosis. This would match the findings on the source images. Smaller area of narrowing is present on the left suggesting more moderate narrowing. Velocity increas e on the ultrasound may be compensatory to the severe right internal carotid artery stenosis. Source images however suggest more severe stenosis. This would match the dedicated reconstructed images thro ugh the carotid bifurcations. No suspicious changes to suggest carotid artery dissections IMPRESSION: 1. Findings compatible with severe stenosis of at least 70% right internal carotid artery. Consider a more critical stenosis given the velocity drop within the internal carotid artery on the ultrasound. This would match the appearance on the source images. 2. At least moderate narrowing of at least 50% the left internal carotid artery. Ultrasound velocity suggests this may be greater 70% which would appear to match the source images. [facility], , 01/03/2025 12:16 PM
--- NOTE | 2025-01-03 13:05 | CA ---
Stress Echo Report Jose Cook Age: 59 Gender: M : 1965 Exam Date: 01/03/2025 12:02 Exam Location: [facility] Ht (in): 70 Wt (lb): 180 Ordering Physician: Emily Holt Referring Physician: [id number] Yuan Grants Assistant: JUAN MIGUEL Technologist Procedure CPT: Indication: preop clearance ICD-9 Codes: Rhythm: Patient History: Peripheral vascular disease. Cardiac Medications: SEE CHART,,,,, Medications in past 24 hours: Contrast: Stress Results Protocol: Zi Total dose(mL): Exercise Duration (min:sec): 9:[address] Depression (mm): Angina Score: Fritz Score: METS: 10.5 Resting HR: 79 Resting BP: 146 / 92 Peak HR: 154 Peak BP: 217 / 85 Max Predicted HR: 161 96 % Max Predicted HR Target HR: 137 Double Product: 52174 Stress Summary: BP Response: Reason for Termination: MAX EXERTION/TARGET HR Cardiac Symptoms: NO SYMPTOMS ECG Analysis Resting ECG: Stress ECG: Arrhythmia: Echo Analysis Resting Echo: Peak Echo Analysis: MEASUREMENTS (Male/Female) Normal Values CONCLUSIONS Good exercise tolerance Normal stress echocardiogram Dr. Nico Fontana MD (Electronically Signed) Final Date: 03 January 2025 13:04
--- NOTE | 2025-01-03 13:27 | P.PN ---
Subjective Progress Note Date: 01/03/25 Principal diagnosis: Carotid stenosis Patient currently down for MRI of the brain and cardiac stress test. Carotid duplex showed near occlusion bilateral internal carotid arteries. Objective - Vital Signs Vital signs: Vital Signs Temp 97.9 F 01/03/25 08:00 Pulse 86 01/03/25 08:00 Resp 17 01/03/25 08:00 BP 149/90 01/03/25 08:00 Pulse Ox 95 01/03/25 08:00 FiO2 Intake & Output 01/02/25 01/03/25 01/03/25 18:59 06:59 18:59 Intake Total 250 240 Balance 250 240 Weight 86.183 kg 81.4 kg Intake: IV 10 Invasive Line 1 10 Oral 240 240 Other: Voiding Method Toilet Toilet # Voids 1 2 - Labs CBC & Chem 7: 01/03/25 08:07 01/03/25 08:07 Labs: Abnormal Lab Results - Last 24 Hours (Table) 01/02/25 01/02/25 01/03/25 Range/Units 12:55 12:55 08:07 WBC 10.56 H (4.50-10.00) 10*3/uL RBC (4.40-5.60) 10*6/uL Hct (39.6-50.0) % MPV 8.8 L (9.5-12.2) fL Sodium 136 L 136 L (137-145) mmol/L Glucose 175 H 135 H (74-99) mg/dL 01/03/25 Range/Units 08:07 WBC (4.50-10.00) 10*3/uL RBC 4.33 L (4.40-5.60) 10*6/uL Hct 38.6 L (39.6-50.0) % MPV 8.8 L (9.5-12.2) fL Sodium (137-145) mmol/L Glucose (74-99) mg/dL Assessment and Plan Assessment: Left upper extremity weakness High-grade bilateral internal carotid artery, occlusion of the right ICA with quick response Tobacco abuse Plan: 1. Cardiology consulted for cardiac clearance for right carotid endarterectomy 2. Carotid duplex reviewed 3. Continue with antiplatelet therapy 4. Await MRI findings 5. Patient is tentatively scheduled for right carotid endarterectomy on Tuesday 6. Recommend smoking cessation. Nicotine patch offered. Thank you for this consultation, we will continue to follow. The impression and plan of care has been dictated as directed. I performed a history and examination of this patient, discussed the same with the dictator. I agree with the dictator's note ,documented as a scribe. Any additional findings or plans will be noted.
--- NOTE | 2025-01-03 14:29 | P.PN ---
Subjective Progress Note Date: 01/03/25 History of present illness; Patient is a 59-year-old male not being seen by PCP in outpatient setting, was apparently having difficulty and weakness of the left arm. The patient went to chiropractor for almost a month and was undergoing neck adjustments. Because the lack of improvement, the patient came to hospital and was found to have critical stenosis of both internal carotid arteries on the proximity on right and left and the patient was admitted for further evaluation and treatment. There is no history of any fever, rigors or chills at this time. The blood pressure was elevated. The patient has a history of smoking. WBC 10.56. 01/03/2025 Patient was in MRI this morning, and to follow with stress test. He is scheduled for right sided carotid endarterectomy on Tuesday and currently under going evaluation. PHYSICAL EXAMINATION: Vitals reviewed Unable to examine as patient was in MRI Today significant findings: -Labshematocrit 38.6 sodium 136, glucose 135 -Echocardiogram reviewed, EF at 50% -MRI cervical spine independently reviewed with findings of mild disc bulging without cord contact or spinal canal stenosis -Brain neck MRA head reviewed with findings of severe stenosis of at least 70% of the right internal carotid artery, consider more critical stenosis given velocity drop within internal carotid artery on ultrasound. At least moderate narrowing at least 50% of the left internal carotid artery some images suggest 70% or greater. Assessment and Plan: In summary, patient is a 59-year-old male not being seen by PCP in outpatient setting, was apparently having difficulty and weakness of the left arm. #Acute/subacute cerebral infarct in the posterior right frontal lobe presenting as left upper extremity weakness # High-grade bilateral carotid stenosis , occlusion of the right ICA with quick response Continue Lipitor 80 mg nightly Continue with antiplatelet therapy MRI results pending CT angiography reviewed Carotid duplex reviewed Continue [place] 53 25 every 6 hours as needed for pain Cardiology consulted for cardiac clearance, obtain stress echo Neurology following - Vascular surgery consulted PT OT speech therapy consulted Patient tentatively scheduled for right carotid endarterectomy on Tuesday Chronic Medical Conditions Daily tobacco use DVT ppx: Subcu heparin 5000 units twice daily Code status: Full code, with instructions F: P.o. E: Replete as needed N: Heart healthy diet Anticipated discharge place: Pending clinical course Anticipated discharge time: Pending clinical course Dictation was produced using [employer] software. Please excuse any grammatical, word or spelling errors. Objective - Vital Signs Vital signs: Vital Signs Temp 98.1 F 01/03/25 04:00 Pulse 83 01/03/25 04:00 Resp 16 01/03/25 04:00 BP 134/75 01/03/25 04:00 Pulse Ox 95 01/03/25 04:00 FiO2 Intake & Output 01/02/25 01/03/25 01/03/25 18:59 06:59 18:59 Intake Total 250 Balance 250 Weight 86.183 kg 81.4 kg Intake: IV 10 Invasive Line 1 10 Oral 240 Other: Voiding Method Toilet # Voids 1 - Labs CBC & Chem 7: 01/03/25 08:07 01/03/25 08:07 Labs: Abnormal Lab Results - Last 24 Hours (Table) 01/02/25 01/02/25 Range/Units 12:55 12:55 WBC 10.56 H (4.50-10.00) 10*3/uL MPV 8.8 L (9.5-12.2) fL Sodium 136 L (137-145) mmol/L Glucose 175 H (74-99) mg/dL
[2025-01-03 15:29] LABS: Chol/HDL Ratio 3.89 Ratio; LDL Cholesterol,Calculated 134.1 mg/dL (0.0-131.0)
--- NOTE | 2025-01-03 16:30 | P.PN ---
Subjective Progress Note Date: 01/03/25 I am following up with the patient and he stated that on September 17, 2024 he noticed that he had left upper extremity weakness but it was mild and he was functional. And then for the last 2 months he has been following with a chiropractor and in the past few weeks he has been having worsening weakness as result he decided to come to the hospital for further evaluation. Objective - Vital Signs Vital signs: Vital Signs Temp 97.9 F 01/03/25 15:58 Pulse 86 01/03/25 15:58 Resp 16 01/03/25 15:58 BP 139/73 01/03/25 15:58 Pulse Ox 94 L 01/03/25 15:58 FiO2 Intake & Output 01/02/25 01/03/25 01/03/25 18:59 06:59 18:59 Intake Total 250 240 Balance 250 240 Weight 86.183 kg 81.4 kg Intake: IV 10 Invasive Line 1 10 Oral 240 240 Other: Voiding Method Toilet Toilet # Voids 1 2 - Exam GENERAL: The patient is sitting in a recliner chair and is not in acute distress. NEUROLOGICAL: Higher mental function: The patient is awake, alert, oriented to self, place and time. Patient is following commands. No aphasia and no neglect. Cranial nerves: The pupils are round, equal and reactive to light and accommodation. Visual sheriff are full to confrontation throughout. Extraocular movement is intact no nystagmus is noted. Facial sensation is normal to touch throughout. The facial strength is normal throughout. Hearing is normal bilaterally to hand rub. Tongue is midline and moved [id number] without any difficulty. No dysarthria is noted. Shoulder shrug is normal bilaterally. Motor: The strength is left upper extremity predominately left arm is 4-4+, left hand finisher card tender is 3-4- and left finger extension are 1-2. Otherwise strength are 5 over 5 throughout. Decrease tone in the left upper extremity. Normal bulk. Cerebellum: Normal finger to nose on the right but hard to perform on the left because of weakness. Sensation: Sensation is normal to touch throughout. Reflexes (right/left): brisk reflex of the uppers and patellar 3+. Ankles are 2+. Plantars are mute bilaterally. Some of the workup during this hospital visit consisted of: Blood pressure on initial presentation is 170/96. TSH is 1.810 Lipid panel is triglyceride is 106, cholesterol is 209, LDL is under 34 and HDL is 53 Hemoglobin A1c is 6.6. CT of the head is reported as acute cortical and subcortical infarct in the posterior right frontal lobe. MRI would be useful for further evaluation. No acute bleed or mass effect intracranial. I personally reviewed CT and I felt there is a ?hypodensity in the right frontal but I would have expected it to be more prominent since it has been going on for [address] cervical spine is reported as no acute trauma. Mild multilevel degenerative disc disease. CT angiography of the head and neck is reported as critical focal string-like stenosis in both proximal right and left internal carotid artery. MRI cervical spine is reported as mild disc bulging without cord contact or spinal canal stenosis. MRI of the brain is reported as right frontal cortical and subcortical ischemic changes. Some luxury perfusion enhancement is likely present at this level. Additional subcortical ischemic changes are within the right watershed and inferior right frontal lobe. Solitary ischemic changes within the subcortical left vertex. MRA of the neck is reported as finding compatible with the severe stenosis at least 70% right internal carotid artery. Consider more critical stenosis given the velocity drop within the internal carotid artery on the ultrasound. This would match the appearance of the source images. At least moderate narrowing at least 50% left internal carotid artery. Ultrasound velocities just that may be greater than 70 which would appear to match the source images. - Labs CBC & Chem 7: 01/03/25 08:07 01/03/25 08:07 Labs: Abnormal Lab Results - Last 24 Hours (Table) 01/03/25 01/03/25 01/03/25 Range/Units 08:07 08:07 08:07 RBC 4.33 L (4.40-5.60) 10*6/uL Hct 38.6 L (39.6-50.0) % MPV 8.8 L (9.5-12.2) fL Sodium 136 L (137-145) mmol/L Glucose 135 H (74-99) mg/dL Hemoglobin A1c 6.6 H (<=6.0) % Cholesterol 209.00 H (0.00-200.00) mg/dL LDL Cholesterol, Calc 134.1 H (0.0-131.0) mg/dL Assessment and Plan Assessment: This is a 59-year-old gentleman who presents to the emergency department because of worsening weakness of the left upper extremity,. He has been having weakness over the left upper extremity since 09/17/2024 that was sudden onset but was mild then had chiroprator therapy over the past two month and symptoms has been getting worse. CT of the head is reported as acute cortical to subcortical infarct in the posterior right frontal and the CT angiography is reported as critical focal string-like stenosis in both proximal bilateral carotid arteries. Subacute ischemic stroke (has Left upper extremity weakness predominantly in the left forearm). Has stroke over the right fronto/parietal >temporal and seems watershed due to symptomatic right ICA stenosis. Significant bilateral carotid stenosis on CT angiography But on MRA seems more Right >left Hypertensive urgency Newly diagnosed DM Tobacco use Plan: Continue ASA 325mg daily and Plavix 75mg daily. Prior to this patient was not on antiplatelets. From neurological perspective to be on it for 21 days then after that only ASA indefinitely. Continue Lipitor 80mg qhs. LDL goal <70. Vascular surgery team is consulted and they recommended right carotid endarterectomy this Tuesday. Continue neurochecks Cardiac monitoring PT OT and SHEET TAILER are consulted Patient was counseled on tobacco cessation Defer the rest of the medical management the primary and other specialist. For DVT prophylaxis On subcu heparin Will follow-up with patient sporadically. Dr. Smith will resume neurology service this Tuesday then Dr. Kay this Tuesday. Time with Patient: Less than 30
[2025-01-04 07:09] LABS: HCT 38.9 % (39.6-50.0); HGB 13.6 g/dL (13.0-17.0); MCH 31.3 pg (27.0-32.0); MCV 89.4 fL (80.0-97.0); Platelet Count 265 10*3/uL (140-440); RBC 4.35 10*6/uL (4.40-5.60); RDW 13.9 % (11.5-14.5); WBC 8.89 10*3/uL (4.50-10.00)
[2025-01-04 07:36] LABS: African American GFR (CKD) >90 (>60 ml/min/1.73 sqM); Anion Gap 8 mmol/L; Blood Urea Nitrogen 17 mg/dL (9-20); Calcium 9.6 mg/dL (8.4-10.2); Carbon Dioxide 26 mmol/L (22-30); Chloride 102 mmol/L (98-107); Glucose 116 mg/dL (74-99); Non-African American GFR(CKD) >90 (>60 ml/min/1.73 sqM); Potassium 4.2 mmol/L (3.5-5.1); Sodium 136 mmol/L (137-145)
--- NOTE | 2025-01-04 09:16 | P.PN ---
Subjective Progress Note Date: 01/04/25 Principal diagnosis: Carotid stenosis Patient is seen and examined today as a follow-up. He is sitting up in the recliner. He denies any new focal deficits. States he still has some weakness in his left hand. Denies any difficulty with speech or swallowing. He underwent brain MRI and MRA of the head and neck. Brain MRI shows stroke over the right frontal lobe and subcortical ischemic changes as well as within the right watershed and a solitary ischemic change within the subcortical left vertex. MRA of the neck findings are compatible with likely greater than 70% right internal carotid artery stenosis at least moderate narrowing of at least 50% of the left internal carotid artery. Stress echocardiogram reported good exercise tolerance and normal stress echocardiogram. Objective - Vital Signs Vital signs: Vital Signs Temp 98.0 F 01/04/25 04:00 Pulse 81 01/04/25 04:00 Resp 17 01/04/25 04:00 BP 151/88 01/04/25 04:00 Pulse Ox 94 L 01/04/25 04:00 FiO2 Intake & Output 01/03/25 01/04/25 01/04/25 18:59 06:59 18:59 Intake Total 480 500 Balance 480 500 Weight 81.8 kg Intake: IV 20 Invasive Line 1 20 Oral 480 480 Other: Voiding Method Toilet Toilet # Voids 2 2 - Exam General appearance: The patient is alert, oriented, appears in no acute distress. HET: Head is normocephalic and atraumatic. Pupils are equal and reactive. Neck: Supple. Heart: Regular. Lungs: Equal expansion, normal respiratory effort. Abdomen: Soft, nontender, nondistended. Extremities: Normal skin color and turgor. Neurological: Patient is alert and oriented x 3. No speech deficits. Patient has facial symmetry. Left hand grasp weak compared to right 3/5. - Labs CBC & Chem 7: 01/04/25 05:46 01/04/25 05:46 Labs: Abnormal Lab Results - Last 24 Hours (Table) 01/03/25 01/03/25 01/03/25 Range/Units 08:07 08:07 08:07 RBC 4.33 L (4.40-5.60) 10*6/uL Hct 38.6 L (39.6-50.0) % MPV 8.8 L (9.5-12.2) fL Sodium 136 L (137-145) mmol/L Glucose 135 H (74-99) mg/dL Hemoglobin A1c 6.6 H (<=6.0) % Cholesterol 209.00 H (0.00-200.00) mg/dL LDL Cholesterol, Calc 134.1 H (0.0-131.0) mg/dL 01/04/25 Range/Units 05:46 RBC 4.35 L (4.40-5.60) 10*6/uL Hct 38.9 L (39.6-50.0) % MPV 9.0 L (9.5-12.2) fL Sodium (137-145) mmol/L Glucose (74-99) mg/dL Hemoglobin A1c (<=6.0) % Cholesterol (0.00-200.00) mg/dL LDL Cholesterol, Calc (0.0-131.0) mg/dL Assessment and Plan Assessment: Acute ischemic stroke right frontal lobe and watershed with left upper extremity weakness High-grade bilateral internal carotid artery, occlusion of the right ICA with quick response Left ischemic changes within the subcortical left vertex. Moderate left ICA stenosis Tobacco abuse Plan: 1. Cardiology consulted for cardiac clearance for right carotid endarterectomy. Await further recommendations 2. Carotid duplex reviewed 3. Continue with antiplatelet therapy and statin 4. MRI findings compatible with acute ischemic stroke right frontal lobe 5. Patient is tentatively scheduled for right carotid endarterectomy on Tuesday 6. Recommend smoking cessation. Nicotine patch offered. 7. Continue with recommendations from neurology 8. Continue with OT and PT Thank you for this consultation, we will continue to follow. The impression and plan of care has been dictated as directed. I performed a history and examination of this patient, discussed the same with the dictator. I agree with the dictator's note ,documented as a scribe. Any additional findings or plans will be noted.
--- NOTE | 2025-01-04 13:32 | P.PN ---
Subjective Progress Note Date: 01/04/25 History of present illness; Patient is a 59-year-old male not being seen by PCP in outpatient setting, was apparently having difficulty and weakness of the left arm. The patient went to chiropractor for almost a month and was undergoing neck adjustments. Because the lack of improvement, the patient came to hospital and was found to have critical stenosis of both internal carotid arteries on the proximity on right and left and the patient was admitted for further evaluation and treatment. There is no history of any fever, rigors or chills at this time. The blood pressure was elevated. The patient has a history of smoking. WBC 10.56. 01/03/2025 Patient was in MRI this morning, and to follow with stress test. He is scheduled for right sided carotid endarterectomy on Tuesday and currently under going evaluation. 01/04/2025 Patient was seen and examined at bedside. Continued weakness in his left hand. Awaiting surgery, potentially on Tuesday. PHYSICAL EXAMINATION: Vitals reviewed GENERAL: Resting comfortably in bed. EYES: PERRL, no scleral injection or icterus. No vision loss HENT: Normocephalic, atraumatic, hearing grossly intact, moist mucous membranes CARDIOVASCULAR: S1 and S2 present. No murmurs, rubs, or gallops. PULMONARY: Chest is clear to auscultation, no wheezing, rhonchi, or crackles. ABDOMEN: Soft, nontender, nondistended. No palpable organomegaly. EXTREMITIES: No apparent cyanosis, clubbing. No pedal edema. NEUROLOGICAL: 4/5 strength in right wrist flexor. Otherwise 5 out of 5 strength throughout Today significant findings: Labssodium 136, glucose 116, cholesterol 209, LDL 134 Stress echocardiogram findings of good exercise tolerance, normal echo Assessment and Plan: In summary, patient is a 59-year-old male not being seen by PCP in outpatient setting, was apparently having difficulty and weakness of the left arm. #Acute/subacute cerebral infarct in the posterior right frontal lobe presenting as left upper extremity weakness # High-grade bilateral carotid stenosis , occlusion of the right ICA with quick response Continue Lipitor 80 mg nightly Continue with antiplatelet therapy MRI results pending CT angiography reviewed Carotid duplex reviewed Continue [place] 53 25 every 6 hours as needed for pain Cardiology consulted for cardiac clearance, obtain stress echo Neurology following - Vascular surgery consulted PT OT speech therapy consulted Patient tentatively scheduled for right carotid endarterectomy on Tuesday Chronic Medical Conditions Daily tobacco use DVT ppx: Subcu heparin 5000 units twice daily Code status: Full code, with instructions F: P.o. E: Replete as needed N: Heart healthy diet Anticipated discharge place: Pending clinical course Anticipated discharge time: Pending clinical course Dr. Moore seen patient with resident, present during exam, and agreed with findings. Dictation was produced using [employer] dictation software. Please excuse any grammatical, word or spelling errors. Objective - Vital Signs Vital signs: Vital Signs Temp 98.0 F 01/04/25 04:00 Pulse 81 01/04/25 04:00 Resp 17 01/04/25 04:00 BP 151/88 01/04/25 04:00 Pulse Ox 94 L 01/04/25 04:00 FiO2 Intake & Output 01/03/25 01/04/25 01/04/25 18:59 06:59 18:59 Intake Total 480 500 Balance 480 500 Weight 81.8 kg Intake: IV 20 Invasive Line 1 20 Oral 480 480 Other: Voiding Method Toilet Toilet # Voids 2 2 - Labs CBC & Chem 7: 01/04/25 05:46 01/04/25 05:46 Labs: Abnormal Lab Results - Last 24 Hours (Table) 01/03/25 01/03/25 01/03/25 Range/Units 08:07 08:07 08:07 RBC 4.33 L (4.40-5.60) 10*6/uL Hct 38.6 L (39.6-50.0) % MPV 8.8 L (9.5-12.2) fL Sodium 136 L (137-145) mmol/L Glucose 135 H (74-99) mg/dL Hemoglobin A1c 6.6 H (<=6.0) % Cholesterol 209.00 H (0.00-200.00) mg/dL LDL Cholesterol, Calc 134.1 H (0.0-131.0) mg/dL 01/04/25 01/04/25 Range/Units 05:46 05:46 RBC 4.35 L (4.40-5.60) 10*6/uL Hct 38.9 L (39.6-50.0) % MPV 9.0 L (9.5-12.2) fL Sodium 136 L (137-145) mmol/L Glucose 116 H (74-99) mg/dL Hemoglobin A1c (<=6.0) % Cholesterol (0.00-200.00) mg/dL LDL Cholesterol, Calc (0.0-131.0) mg/dL
--- NOTE | 2025-01-04 14:44 | P.PN ---
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 He has a past medical history of tobacco use and dependence. We have been asked to evaluate the patient for cardiac clearance for carotid endarterectomy which is scheduled either Tuesday or Tuesday this . Patient states that he presented to the hospital due to weakness of the left arm which he has never had in the past. He states he was sleeping and he woke up to find his left arm weak. He still has some weakness but it has improved. Patient states he is normally physically active and does not experience chest pain with activity. He denies palpitations, dizziness, PND, orthopnea. No shortness of breath, dizziness or lightheadedness. He has had physical examinations for work and his blood pressure has been at that time. He denies having any blood in his urine or stool. No previous history of stroke or seizure. Blood pressure 149/90, heart rate 86, pulse ox 95% on room air. Patient has been started on a full-strength aspirin, Plavix, atorvastatin. Patient is scheduled for MRI of the brain and cervical spine. -EKG: Sinus rhythm with no acute ST-T wave changes. -Chest x-ray: No acute process. -CT brain and cervical spine: Acute cortical and subcortical infarct in the posterior right frontal lobe. No acute bleed or mass effect. CT of the cervical spine showed no acute trauma. Mild multilevel degenerative disc disease. -CTA of the head and neck: Critical focal string-like stenosis in both the proximal right and left internal carotid arteries. -Carotid duplex: Near occlusion of the bilateral carotid bifurcations. -Laboratory studies: WBC 9, hemoglobin 13.5, sodium 136, potassium 4.4, BUN 15 creatinine 0.81. Troponin negative x 1. C-reactive protein less than 0.5. TSH 1.81. Cepheid viral panel not detected. -Home cardiac medications: None 01/04 Patient seen and examined. Yesterday patient underwent stress echocardiogram which was normal. He states he did not sleep well last night. He continues to have left upper extremity weakness. He states he is still scheduled for carotid blood pressure 147/84, pulse ox 97% on room air, heart rate 79. Endarterectomy on Tuesday. Echocardiogram reveals EF of 50%. Physical examination: Gen: This is a 59-year-old male in no acute distress VS: reviewed HEENT: Head is atraumatic, normocephalic. Pupils equal, round. Sclerae is anicteric. NECK: Supple. No JVD. Bilateral carotid bruit. LUNGS: Clear to auscultation. No wheezes or rhonchi. No intercostal retracti ons. HEART: Regular rate and rhythm. No murmur. ABDOMEN: Soft No tenderness. EXTREMITIES: No pedal edema. No calf tenderness. NEUROLOGICAL: Patient is awake, alert and oriented x3. Assessment: Acute/subacute cerebral infarct in the posterior right frontal lobe presenting with left upper extremity weakness Critical stenosis of both the right and left internal carotid arteries Hypertension Tobacco use and dependence Plan: Patient has been started on full-strength aspirin, Plavix, atorvastatin 80 mg daily Continue nicotine patch Patient is cleared by cardiology for carotid endarterectomy which is scheduled on Tuesday. Patient is at average risk for cardiovascular complications during the procedure. No absolute contraindications. Smoking cessation. Patient will be provided the [employer] quit line information at discharge. Thank you kindly for this consultation. Nurse practitioner note has been reviewed, I agree with documented findings and plan of care. Patient was seen and examined. Objective - Vital Signs Vital signs: Vital Signs Temp 98 F 01/04/25 08:00 Pulse 79 01/04/25 08:00 Resp 18 01/04/25 08:00 BP 147/84 01/04/25 08:00 Pulse Ox 97 01/04/25 08:00 FiO2 Intake & Output 01/03/25 01/04/25 01/04/25 18:59 06:59 18:59 Intake Total 480 500 118 Balance 480 500 118 Weight 81.8 kg Intake: IV 20 Invasive Line 1 20 Oral 480 480 118 Other: Voiding Method Toilet Toilet Toilet # Voids 2 2 - Labs CBC & Chem 7: 01/04/25 05:46 01/04/25 05:46 Labs: Abnormal Lab Results - Last 24 Hours (Table) 01/03/25 01/03/25 01/04/25 Range/Units 08:07 08:07 05:46 RBC 4.35 L (4.40-5.60) 10*6/uL Hct 38.9 L (39.6-50.0) % MPV 9.0 L (9.5-12.2) fL Sodium (137-145) mmol/L Glucose (74-99) mg/dL Hemoglobin A1c 6.6 H (<=6.0) % Cholesterol 209.00 H (0.00-200.00) mg/dL LDL Cholesterol, Calc 134.1 H (0.0-131.0) mg/dL 01/04/25 Range/Units 05:46 RBC (4.40-5.60) 10*6/uL Hct (39.6-50.0) % MPV (9.5-12.2) fL Sodium 136 L (137-145) mmol/L Glucose 116 H (74-99) mg/dL Hemoglobin A1c (<=6.0) % Cholesterol (0.00-200.00) mg/dL LDL Cholesterol, Calc (0.0-131.0) mg/dL
[2025-01-05 07:29] LABS: HCT 40.2 % (39.6-50.0); MCH 31.1 pg (27.0-32.0); MCHC 34.8 g/dL (32.0-37.0); MCV 89.3 fL (80.0-97.0); Mean Platelet Volume 8.9 fL (9.5-12.2); Platelet Count 266 10*3/uL (140-440); RDW 13.8 % (11.5-14.5); WBC 12.96 10*3/uL (4.50-10.00)
[2025-01-05 08:09] LABS: African American GFR (CKD) >90 (>60 ml/min/1.73 sqM); Anion Gap 10 mmol/L; Blood Urea Nitrogen 15 mg/dL (9-20); Carbon Dioxide 23 mmol/L (22-30); Chloride 103 mmol/L (98-107); Glucose 104 mg/dL (74-99); Non-African American GFR(CKD) >90 (>60 ml/min/1.73 sqM); Potassium 4.3 mmol/L (3.5-5.1); Sodium 136 mmol/L (137-145)
--- NOTE | 2025-01-05 12:40 | P.PN ---
Subjective Progress Note Date: 01/05/25 History of present illness; Patient is a 59-year-old male not being seen by PCP in outpatient setting, was apparently having difficulty and weakness of the left arm. The patient went to chiropractor for almost a month and was undergoing neck adjustments. Because the lack of improvement, the patient came to hospital and was found to have critical stenosis of both internal carotid arteries on the proximity on right and left and the patient was admitted for further evaluation and treatment. There is no history of any fever, rigors or chills at this time. The blood pressure was elevated. The patient has a history of smoking. WBC 10.56. 01/03/2025 Patient was in MRI this morning, and to follow with stress test. He is scheduled for right sided carotid endarterectomy on Tuesday and currently under going evaluation. 01/04/2025 Patient was seen and examined at bedside. Continued weakness in his left hand. Awaiting surgery, potentially on Tuesday. 01/05/2025 Patient was seen and examined at bedside. Well overnight, no changes. States he has some improvement in his left wrist strength. Awaiting surgery tomorrow. PHYSICAL EXAMINATION: Vitals reviewed GENERAL: Resting comfortably in bed. EYES: PERRL, no scleral injection or icterus. No vision loss HENT: Normocephalic, atraumatic, hearing grossly intact, moist mucous membranes CARDIOVASCULAR: S1 and S2 present. No murmurs, rubs, or gallops. PULMONARY: Chest is clear to auscultation, no wheezing, rhonchi, or crackles. ABDOMEN: Soft, nontender, nondistended. No palpable organomegaly. EXTREMITIES: No apparent cyanosis, clubbing. No pedal edema. NEUROLOGICAL: 4/5 strength in right wrist flexor. Otherwise 5 out of 5 strength throughout Today significant findings: LabsWBC 12.9, sodium 136, glucose 104 No new imaging Assessment and Plan: In summary, patient is a 59-year-old male not being seen by PCP in outpatient setting, was apparently having difficulty and weakness of the left arm. #Acute/subacute cerebral infarct in the posterior right frontal lobe presenting as left upper extremity weakness # High-grade bilateral carotid stenosis , occlusion of the right ICA with quick response Continue Lipitor 80 mg nightly Continue with antiplatelet therapy Brain MRI with MRA severe stenosis 70% of the right carotid artery, moderate narrowing at least 50% of the left internal carotid artery, both arteries with velocity drop CT angiography reviewed Carotid duplex reviewed Continue [place] 53 25 every 6 hours as needed for pain Cardiology consulted for cardiac clearance, obtain stress with EF 50% Neurology following - Vascular surgery consulted PT OT speech therapy consulted Patient tentatively scheduled for right carotid endarterectomy on Tuesday #Leukocytosis, likely reactive Patient afebrile, asymptomatic Monitor CBC Chronic Medical Conditions Daily tobacco use DVT ppx: Subcu heparin 5000 units twice daily Code status: Full code, with instructions F: P.o. E: Replete as needed N: Heart healthy diet Anticipated discharge place: Pending clinical course Anticipated discharge time: Pending clinical course Dr. Moore seen patient with resident, present during exam, and agreed with findings. Dictation was produced using [employer] dictation software. Please excuse any grammatical, word or spelling errors. Objective - Vital Signs Vital signs: Vital Signs Temp 97.7 F 01/05/25 04:00 Pulse 80 01/05/25 04:00 Resp 16 01/05/25 04:00 BP 143/76 01/05/25 04:00 Pulse Ox 95 01/05/25 04:00 FiO2 Intake & Output 01/04/25 01/05/25 01/05/25 18:59 06:59 18:59 Intake Total 658 Balance 658 Weight 81.5 kg Intake: Oral 658 Other: Voiding Method Toilet Toilet # Voids 2 1 - Labs CBC & Chem 7: 01/05/25 06:28 01/05/25 06:28 Labs: Abnormal Lab Results - Last 24 Hours (Table) 01/05/25 01/05/25 Range/Units 06:28 06:28 WBC 12.96 H (4.50-10.00) 10*3/uL MPV 8.9 L (9.5-12.2) fL Sodium 136 L (137-145) mmol/L Glucose 104 H (74-99) mg/dL
--- NOTE | 2025-01-05 13:55 | P.PN ---
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 He has a past medical history of tobacco use and dependence. We have been asked to evaluate the patient for cardiac clearance for carotid endarterectomy which is scheduled either Tuesday or Tuesday this . Patient states that he presented to the hospital due to weakness of the left arm which he has never had in the past. He states he was sleeping and he woke up to find his left arm weak. He still has some weakness but it has improved. Patient states he is normally physically active and does not experience chest pain with activity. He denies palpitations, dizziness, PND, orthopnea. No shortness of breath, dizziness or lightheadedness. He has had physical examinations for work and his blood pressure has been at that time. He denies having any blood in his urine or stool. No previous history of stroke or seizure. Blood pressure 149/90, heart rate 86, pulse ox 95% on room air. Patient has been started on a full-strength aspirin, Plavix, atorvastatin. Patient is scheduled for MRI of the brain and cervical spine. -EKG: Sinus rhythm with no acute ST-T wave changes. -Chest x-ray: No acute process. -CT brain and cervical spine: Acute cortical and subcortical infarct in the posterior right frontal lobe. No acute bleed or mass effect. CT of the cervical spine showed no acute trauma. Mild multilevel degenerative disc disease. -CTA of the head and neck: Critical focal string-like stenosis in both the proximal right and left internal carotid arteries. -Carotid duplex: Near occlusion of the bilateral carotid bifurcations. -Laboratory studies: WBC 9, hemoglobin 13.5, sodium 136, potassium 4.4, BUN 15 creatinine 0.81. Troponin negative x 1. C-reactive protein less than 0.5. TSH 1.81. Cepheid viral panel not detected. -Home cardiac medications: None 01/04 Patient seen and examined. Yesterday patient underwent stress echocardiogram which was normal. He states he did not sleep well last night. He continues to have left upper extremity weakness. He states he is still scheduled for carotid blood pressure 147/84, pulse ox 97% on room air, heart rate 79. Endarterectomy on Tuesday. Echocardiogram reveals EF of 50%. 01/05/2025 Patient examined this morning at the bedside. Patient currently denies chest pain or pressure. She denies shortness of breath. Vital signs are stable. PHYSICAL EXAM: VITAL SIGNS: Reviewed. GENERAL: Well-developed in no acute distress. NECK: Supple. No JVD or thyromegaly LUNGS: Respirations even and unlabored. Lungs essentially clear to auscultation bilaterally. HEART: Regular rate and rhythm. S1 and S2 heard. EXTREMITIES: Normal range of motion. No clubbing or cyanosis. Peripheral pulses intact. No lower extremity edema ASSESSMENT: Acute/subacute cerebral infarct in the posterior right frontal lobe presenting with left upper extremity weakness Critical stenosis of both the right and left internal carotid arteries Hypertension Tobacco use and dependence PLAN: Continue current cardiac medications including aspirin, Plavix, and Lipitor Smoking cessation recommended. Patient scheduled for carotid endarterectomy on 01/06/2025 Patient is at average risk for cardiovascular complications during procedure. There are no absolute contraindications for patient to proceed. No further inpatient recommendations from a cardiology perspective We will sign off. Please reconsult if needed. Nurse practitioner note has been reviewed by physician. Signing provider agrees with the documented findings, assessment, and plan of care documented by REAL ESTATE ASSESSOR as a scribe. Objective - Vital Signs Vital signs: Vital Signs Temp 98.2 F 01/05/25 08:15 Pulse 90 01/05/25 11:50 Resp 16 01/05/25 11:50 BP 116/81 01/05/25 11:50 Pulse Ox 96 01/05/25 11:50 FiO2 Intake & Output 01/04/25 01/05/25 01/05/25 18:59 06:59 18:59 Intake Total 658 480 Balance 658 480 Weight 81.5 kg Intake: Oral 658 480 Other: Voiding Method Toilet Toilet # Voids 2 1 1 - Labs CBC & Chem 7: 01/05/25 06:28 01/05/25 06:28 Labs: Abnormal Lab Results - Last 24 Hours (Table) 01/05/25 01/05/25 Range/Units 06:28 06:28 WBC 12.96 H (4.50-10.00) 10*3/uL MPV 8.9 L (9.5-12.2) fL Sodium 136 L (137-145) mmol/L Glucose 104 H (74-99) mg/dL
[2025-01-06 07:21] LABS: Basophils # (A) 0.06 10*3/uL (0.00-0.10); Basophils % (A) 0.7 %; Eosinophils # (A) 0.13 10*3/uL (0.04-0.35); Eosinophils % (A) 1.4 %; HCT 36.4 % (39.6-50.0); HGB 12.6 g/dL (13.0-17.0); Lymphocytes % (A) 33.7 %; MCHC 34.6 g/dL (32.0-37.0); MCV 89.7 fL (80.0-97.0); Mean Platelet Volume 8.8 fL (9.5-12.2); Monocytes # (A) 0.77 10*3/uL (0.20-1.00); Monocytes % (A) 8.4 %; Neutrophils # (A) 5.12 10*3/uL (1.80-7.70); Neutrophils % (A) 55.5 %; Platelet Count 246 10*3/uL (140-440); RBC 4.06 10*6/uL (4.40-5.60); RDW 13.7 % (11.5-14.5); WBC 9.21 10*3/uL (4.50-10.00)
[2025-01-06] MEDS ORDERED: VASOPRESSIN 20 UNIT/ML 1 ML VIAL ONE (08:00)
[2025-01-06] MEDS ORDERED: PHENYLEPHRINE 10 MG/ML VIAL ONE (08:00)
[2025-01-06] MEDS ORDERED: GLYCOPYRROLATE 0.2 MG/ML 2 ML VIAL ONE (08:00)
[2025-01-06] MEDS ORDERED: HEPARIN SODIUM,PORCINE 10,000 UNIT/ML 1 ML VIAL ONE (08:00)
[2025-01-06] MEDS ORDERED: SUCCINYLCHOLINE CHLORIDE 200 MG/10 ML VIAL IV ONE (08:00)
[2025-01-06] MEDS ORDERED: ePHEDrine 50 MG/ML 1 ML VIAL ONE (08:00)
[2025-01-06] MEDS ORDERED: LIDOCAINE 1% INJ 10MG/ML (20 ML MDV) ONE (08:00)
[2025-01-06] MEDS ORDERED: NEOSTIGMINE 1 MG/ML 10 ML VIAL ONE (08:00)
[2025-01-06] MEDS ORDERED: PROPOFOL 10 MG/ML 20 ML VIAL IV ONE (08:00)
[2025-01-06] MEDS ORDERED: MIDAZOLAM 2 MG/2 ML VIAL ONE (08:00)
[2025-01-06] MEDS ORDERED: ROCURONIUM 10 MG/ML (5 ML VIAL) IV ONE (08:00)
[2025-01-06] MEDS ORDERED: fentaNYL (PF) 50 MCG/ML 2 ML AMP ONE (08:00)
[2025-01-06] MEDS: LACTATED RINGERS 1,000 ML IV ONE ×3 (08:02→09:19)
[2025-01-06 08:08] LABS: African American GFR (CKD) >90 (>60 ml/min/1.73 sqM); Anion Gap 10 mmol/L; Blood Urea Nitrogen 15 mg/dL (9-20); Calcium 9.4 mg/dL (8.4-10.2); Carbon Dioxide 24 mmol/L (22-30); Chloride 104 mmol/L (98-107); Glucose 113 mg/dL (74-99); Non-African American GFR(CKD) >90 (>60 ml/min/1.73 sqM); Potassium 4.3 mmol/L (3.5-5.1); Sodium 138 mmol/L (137-145)
--- NOTE | 2025-01-06 08:25 | P.ANPRN ---
Procedure Note - Anesthesia - Invasive Line Left Arterial Line Time Out Performed: Yes Date of Procedure: 01/06/25 Time of Procedure: 07:50 Location of Patient: PreOp Preparation: Sterile Prep, Sterile Dressing Arterial Line Location: Radial Ultrasound Used: No Purpose - Visualization and Identification of Vasculature: No Image Stored and Saved: Yes Narrative: Invasive line placement per sterile protocol utilized.
[2025-01-06] MEDS: SODIUM CHLORIDE 0.9% 50 ML with ceFAZolin 2,000 MG IV ONE (08:30)
[2025-01-06] MEDS: THROMBIN (BOVINE) 5,000 UNIT VIAL TOPICAL ONE (08:35)
[2025-01-06] MEDS: CEFAZOLIN IV ONE (08:36)
[2025-01-06] MEDS: LIDOCAINE 1% INJ 10MG/ML (20 ML MDV) SQ ONE ×2 (08:36)
[2025-01-06] MEDS: SODIUM CHLORIDE 0.9% IV ONE (08:36)
[2025-01-06] MEDS: HEPARIN SODIUM IV ONE (08:37)
[2025-01-06] MEDS: SODIUM CHLORIDE IV ONE (08:37)
[2025-01-06] MEDS ORDERED: ACETAMINOPHEN TAB 325 MG TAB PO PRN (10:21)
[2025-01-06] MEDS ORDERED: BENZOCAINE/MENTHOL LOZENG 1 EACH LOZENGE MUCOUS MEM PRN (10:21)
--- NOTE | 2025-01-06 10:26 | P.OP ---
Date of Procedure: 01/06/25 Description of Procedure: Preoperative Diagnosis: High-grade symptomatic right internal carotid artery stenosis Postoperative Diagnosis: Same Procedure: Right carotid endarterectomy with patch angioplasty Anesthesia: GET Surgeon: Tammy Rivas DO Estimated Blood Loss (ml): 50 IV Fluids: See records Urine Output: See records Specimen: Right cervical lymph nodes, right carotid plaque Condition: stable Disposition: PACU Findings and indications: Patient is a 9-year-old male with left upper extremity weakness and findings consistent with stroke and high-grade right internal carotid artery stenosis therefore he is recommended to undergo intervention. Given his younger age the decision was made to go forward with a open procedure. Risks and benefits have been discussed. He seemingly understood and was willing to proceed. Procedure in detail: the patient is brought to the operative suite and laid in a supine position. The area of the neck was prepped and draped in usual sterile fashion after appropriate anesthetic was performed per the anesthesiologist. A timeout was performed in normal fashion antibiotics were administered prior to incision. An oblique incision was then created just anterior to the sternocleidomastoid musculature with a 10 blade scalpel and dissection was carried down to the carotid sheath. The carotid sheath was then entered after facial vein was located and suture ligated in normal fashion. The common carotid, internal carotid, external carotid and superior thyroid arteries were located and dissected free in a meticulous fashion circumferentially and controlled with vessel loops. Attention was then placed to locating the vagus nerve as well as hypoglossal nerve which were both spared. During the dissection, there was a brief pause in heart rate, asystole requiring very brief chest compressions with return of systemic circulation. There was no aberrancy in his cerebral oximetry and the patient had already been heparinized. Once controlled, patient was followed with ACTs for appropriate heparinization. Once ACT was appropriate, the proximal and distal aspects of the dissection were then controlled with vascular clamps. Arteriotomy was then created with 11 blade scalpel and extended with Demarco Norman scissors. Previously placed cerebral oximetry was utilized and there was no change in the numbers therefore no shunt was required. An endarterectomy was then performed with a [place] elevator. The plaque was transected proximally and then feathered at the distal aspect of the internal carotid artery and removed. The area was copiously irrigated with heparinized saline and all free debris was removed. A 0.8 x 8 cm bovine pericardial patch was then chosen and patch angioplasty was performed with 6-0 Prolene suture in a running fashion. Prior to last sutures being placed the inflow was released flushing any free debris out of the patch. This was reclamped and the internal carotid artery was released revealing good brisk flow and was once again reclamped. The external carotid and superior thyroid artery were then released followed by the common carotid artery to allow any free debris to be flushed into the external system. Final sutures were placed and secured. Internal carotid artery control was then released. Good pulsatile flow was noted through the patch and a Doppler was utilized demonstrating good brisk flow into the internal, external carotid arteries without any signs of obstruction. Hemostasis was then assured with interrupted sutures of 6-0 Prolene as well as thrombin and Gelfoam. A 10-[place] MARLENE drain was then placed in normal fashion and secured with 3-0 nylon suture. The incision was then closed in a multilayer fashion after hemostasis was assured. The skin was then cleansed and dressings were placed. Patient tolerated the procedure well and was following commands and moving all extremities. Patient was then sent to PACU for recovery.
[2025-01-06] MEDS: IV FLUID CONTINUATION 1,000 ML IV ONE (11:02)
[2025-01-06] MEDS: HYDROcodone/APAP 5-325MG 1 EACH TAB PO PRN (12:43)
[2025-01-06] MEDS: ceFAZolin 2 GM in DEXTROSE 5% IN WATER 50 ML IVPB SCH (18:25)
--- NOTE | 2025-01-06 22:18 | P.PN ---
Subjective Progress Note Date: 01/06/25 Patient will be going for a right carotid endartectomy today. He remains on aspirin 325 mg daily, Plavix 75 mg daily, As well as subcutaneous heparin. Labs today reveal a white blood cell count 9.21, hemoglobin 12.6, sodium 138, BUN of 15 creatinine 0.90. Review of Systems Constitutional: Denied any fatigue denied any fever. Cardio vascular: denied any chest pain, palpitations Gastrointestinal: denied any nausea, vomiting, diarrhea Pulmonary: Denied any shortness of breath cough Neurologic denied any new focal deficits All inpatient medications were reviewed and appropriate changes in these medi cations as dictated in the interval history and assessment and plan. PHYSICAL EXAMINATION: GENERAL: The patient is alert and oriented x3, not in any acute distress. Well developed, well nourished. HEENT: Pupils are round and equally reacting to light. EOMI. No scleral icterus. No conjunctival pallor. Normocephalic, atraumatic. No pharyngeal erythema. No thyromegaly. CARDIOVASCULAR: S1 and S2 present. No murmurs, rubs, or gallops. PULMONARY: Chest is clear to auscultation, no wheezing or crackles. ABDOMEN: Soft, nontender, nondistended, normoactive bowel sounds. No palpable organomegaly. MUSCULOSKELETAL: No joint swelling or deformity. EXTREMITIES: No cyanosis, clubbing, or pedal edema. NEUROLOGICAL: Gross neurological examination did not reveal any focal deficits. SKIN: No rashes. Assessment and plan Acute/subacute cerebral infarct in posterior right frontal lobe presenting as left upper extremity weakness reactive leukocytosis High-grade symptomatic right internal carotid artery stenosis Chronic nicotine use Borderline diabetes Dyslipidemia GI prophylaxis DVT prophylaxis subcu heparin Plan Patient will be going for a right carotid enterectomy today he is currently pen ding procedure with vascular surgery. Continue aspirin Plavix Continue statin therapy The impression and plan of care has been dictated by Dipti Maki, Nurse Practitioner as directed. Dr. Teresa MD I have performed a history and physical examination and medical decision making of this patient, discussed the same with the dictator, and agree with the dictators assessment and plan as written, documented as a scribe. Based on total visit time, I have performed more than 50% of this visit. Objective - Vital Signs Vital signs: Vital Signs Temp 98.0 F 01/06/25 03:43 Pulse 79 01/06/25 11:30 Resp 16 01/06/25 11:30 BP 144/76 01/06/25 11:30 Pulse Ox 96 01/06/25 11:30 FiO2 Intake & Output 01/05/25 01/06/25 01/06/25 18:59 06:59 18:59 Intake Total 480 1852 Output Total 600 Balance 480 1252 Weight 81.4 kg Intake: IV 1852 Oral 480 Output: Urine 550 Estimated Blood Loss 50 Other: Voiding Method Toilet Toilet # Voids 1 2 - Labs CBC & Chem 7: 01/06/25 06:33 01/06/25 06:33 Labs: Abnormal Lab Results - Last 24 Hours (Table) 01/06/25 01/06/25 Range/Units 06:33 06:33 RBC 4.06 L (4.40-5.60) 10*6/uL Hgb 12.6 L (13.0-17.0) g/dL Hct 36.4 L (39.6-50.0) % MPV 8.8 L (9.5-12.2) fL Glucose 113 H (74-99) mg/dL Assessment and Plan Time with Patient: Less than 30
--- NOTE | 2025-01-07 10:16 | P.PN ---
Subjective Progress Note Date: 01/07/25 Principal diagnosis: Carotid stenosis Patient is seen and examined today as a follow-up. He has postop day #1 for right carotid endarterectomy with patch angioplasty. Patient is currently sitting up in the chair. Denies any new focal deficits. States left hand weakness is improved. States he has some slight discomfort to the right side of his neck but no significant pain. Patient ate breakfast. No difficulty with swallowing. She states a little bit of a sore throat. MARLENE drain with 20 mL output. Patient has been voiding without difficulty. Objective - Vital Signs Vital signs: Vital Signs Temp 98.1 F 01/07/25 08:35 Pulse 100 01/07/25 08:35 Resp 16 01/07/25 08:35 BP 159/91 01/07/25 08:35 Pulse Ox 95 01/07/25 08:35 FiO2 Intake & Output 01/06/25 01/07/25 01/07/25 18:59 06:59 18:59 Intake Total 2092 10 Output Total 600 2620 620 Balance 1492 -2620 -610 Weight 82 kg Intake: IV 1852 10 Invasive Line 3 10 Oral 240 Output: Drainage 20 20 Right Neck 20 20 Urine 550 2600 600 Estimated Blood Loss 50 Other: Voiding Method Toilet Indwelling Catheter Urinal - Exam General appearance: The patient is alert, oriented, appears in no acute distress. HET: Head is normocephalic and atraumatic. Pupils are equal and reactive. Neck: Supple. Right side of neck incision well-approximated, with some mild surrounding swelling. MARLENE drain with about 5 mL serosanguineous drainage. MARLENE drain removed. No bleeding. Heart: Regular. Lungs: Equal expansion, normal respiratory effort. Abdomen: Soft, nontender, nondistended. Extremities: Normal skin color and turgor. Neurological: No focal deficits. Strength and sensation are grossly intact. - Labs CBC & Chem 7: 01/06/25 06:33 01/06/25 06:33 Assessment and Plan Assessment: Postop day #1 right carotid endarterectomy with patch angioplasty Acute ischemic stroke right frontal lobe and watershed with left upper extremity weakness High-grade bilateral internal carotid artery, occlusion of the right ICA with quick response Left ischemic changes within the subcortical left vertex. Moderate left ICA stenosis Tobacco abuse Plan: 1. Postop day #1 right carotid endarterectomy with patch angioplasty 2. Heart healthy diet 3. Continue with antiplatelet therapy and statin 4. MARLENE drain discontinued 5. Recommend smoking cessation. Nicotine patch offered. 6. Patient is cleared from vascular surgery for discharge. Follow-up in 2 weeks. Discharge instructions reviewed with patient and . Thank you for this consultation. The impression and plan of care has been dictated as directed. I performed a history and examination of this patient, discussed the same with the dictator. I agree with the dictator's note ,documented as a scribe. Any additional findings or plans will be noted.
[2025-01-07 11:44] VITALS: BP 172/88; PULSE 83; RESP 18; TEMP 98
[2025-01-07] MEDS: amLODIPine 5 MG TAB PO SCH (11:55)
--- NOTE | 2025-01-07 14:07 | P.DS ---
Providers Date of admission: 01/02/25 15:53 Expected date of discharge: 01/07/25 Attending physician: Henry Roberts Consults: 01/02/25 16:06 Consult Physician Urgent Consulting Provider: Dorian Hill Consult Reason/Comments: CVA Do you want consulting provider notified?: Yes 01/02/25 16:07 Consult Physician Routine Consulting Provider: Tammy Sung Consult Reason/Comments: Carotid artery stenosis Do you want consulting provider notified?: Yes Primary care physician: Stated None Hospital Course: Discharge diagnoses; Acute/subacute cerebral infarct in posterior right frontal lobe presenting as left upper extremity weakness reactive leukocytosis High-grade symptomatic right internal carotid artery stenosis Chronic nicotine use Borderline diabetes Dyslipidemia Hospital course; Patient is a 59-year-old male not being seen by PCP in outpatient setting, was apparently having difficulty and weakness of the left arm. The patient went to chiropractor for almost a month and was undergoing neck adjustments. Because the lack of improvement, the patient came to hospital and was found to have critical stenosis of both internal carotid arteries on the proximity on right and left and the patient was admitted for further evaluation and treatment. There is no history of any fever, rigors or chills at this time. The blood pressure was elevated. The patient has a history of smoking. During hospital stay patient was found to have high-grade symptomatic right internal carotid stenosis. On 01/06/2025 a right carotid enterectomy was completed with vascular surgery. Patient stable to home in stable condition. He is to continue clopidogrel 75 mg daily, aspirin 325 mg daily, atorvastatin 80 mg nightly, Norvasc 5 mg daily and nicotine patch. He has a follow-up with his PCP and vascular surgery. He was recommended to titrate antihypertensive as needed. PHYSICAL EXAMINATION: GENERAL: The patient is alert and oriented x3, not in any acute distress. Well developed, well nourished. CARDIOVASCULAR: S1 and S2 present. No murmurs, rubs, or gallops. PULMONARY: Chest is clear to auscultation, no wheezing or crackles. ABDOMEN: Soft, nontender, nondistended, normoactive bowel sounds. No palpable organomegaly. MUSCULOSKELETAL: No joint swelling or deformity. EXTREMITIES: No cyanosis, clubbing, or pedal edema. NEUROLOGICAL: Gross neurological examination did not reveal any focal deficits. SKIN: No rashes. Dr. Moore seen patient with resident, present during exam, and agreed with findings. Dictation was produced using [employer] dictation software. please excuse any grammatical, word or spelling errors. Patient Condition at Discharge: Stable Plan - Discharge Summary Discharge Rx Participant: Yes New Discharge Prescriptions: New Nicotine 14Mg/24Hr Patch [Habitrol] 1 patch TRANSDERM DAILY #30 patch Clopidogrel [Plavix] 75 mg PO DAILY #90 tab Aspirin 325 mg PO DAILY #90 tab Atorvastatin [Lipitor] 80 mg PO HS #90 tab amLODIPine [Norvasc] 5 mg PO DAILY #30 tab Discharge Medication List Aspirin 325 mg PO DAILY #90 tab 01/07/25 [Rx] Atorvastatin [Lipitor] 80 mg PO HS #90 tab 01/07/25 [Rx] Clopidogrel [Plavix] 75 mg PO DAILY #90 tab 01/07/25 [Rx] Nicotine 14Mg/24Hr Patch [Habitrol] 1 patch TRANSDERM DAILY #30 patch 01/07/25 [Rx] amLODIPine [Norvasc] 5 mg PO DAILY #30 tab 01/07/25 [Rx] Follow up Appointment(s)/Referral(s): Tammy Sung DO [STAFF PHYSICIAN] - 01/30/25 9:15 am Yelena Morrell MD [STAFF PHYSICIAN] - ( was going to get a new patient appt.) Patient Instructions/Handouts: Carotid Artery Disease (DC) Activity/Diet/Wound Care/Special Instructions: No strenuous activity or heavy lifting greater than 10 pounds. May shower tomorrow but no tub bathing or soaking. Watch incision site for infection including redness, drainage, or temperature greater than 100.4. If you notice he symptoms please call office Discussed with patient importance of smoking cessation. Patient offered nicotine patch. Quit smoking hotline 1 800 quit-now given to patient. Discharge Disposition: HOME SELF-CARE
== END 2025-01-07 13:39 | disposition home or self-care (01) | DRG 39 ==
LOC: EC 12:27 → 3SCARD 15:53
PROVIDERS: ADMIT Hospitalist; ATTEND Hospitalist
PROC: 03CK0ZZ Extirpation of Matter from Right Internal Carotid Artery, Open Approach (ICD-10-PCS; principal; 2025-01-06 08:00)
PROC: 03UK0KZ Supplement Right Internal Carotid Artery with Nonautologous Tissue Substitute, Open Approach (ICD-10-PCS; principal; 2025-01-06 08:00)
DX: I63.511 Cerebral infarction due to unspecified occlusion or stenosis of right middle cerebral artery (principal); I16.0 Hypertensive urgency; E11.9 Type 2 diabetes mellitus without complications; E78.5 Hyperlipidemia, unspecified; D72.829 Elevated white blood cell count, unspecified; F17.210 Nicotine dependence, cigarettes, uncomplicated; G83.24 Monoplegia of upper limb affecting left nondominant side; I65.23 Occlusion and stenosis of bilateral carotid arteries; R29.703 NIHSS score 3; I10 Essential (primary) hypertension
CPT/HCPCS: 36415; 70450; 70496; 70498; 70549; 70553; 71046; 72125; 72141; 80048; 80053; 80061; 82550; 83036; 83735; 84443; 84484; 85025; 85027; 85610; 85652; 85730; 86140; 86850; 86900; 86901; 87636; 88304; 88305; 93005; 93306; 93351; 93880; 96360; 96372; 99291

== ENCOUNTER → 2025-03-01 | Outpatient (CLI) | payer BC ==
[2025-03-01 19:04] LABS: Basophils # (A) 0.06 X 10*3/uL (0.00-0.10); Basophils % (A) 0.7 %; Eosinophils # (A) 0.17 X 10*3/uL (0.04-0.35); Eosinophils % (A) 1.9 %; HCT 39.2 % (39.6-50.0); HGB 13.2 g/dL (13.0-17.0); Lymphocytes # (A) 2.73 X 10*3/uL (0.90-5.00); Lymphocytes % (A) 30.4 %; MCH 31.1 pg (27.0-32.0); MCHC 33.7 g/dL (32.0-37.0); MCV 92.5 FL (80.0-97.0); Mean Platelet Volume 8.8 FL (9.5-12.2); Monocytes # (A) 0.71 X 10*3/uL (0.20-1.00); Monocytes % (A) 7.9 %; NRBC Per 100 WBC 0 X 10*3/uL (0.00-0.01); Neutrophils # (A) 5.27 X 10*3/uL (1.80-7.70); Neutrophils % (A) 58.8 %; Platelet Count 279 X 10*3/uL (140-440); RBC 4.24 X 10*6/uL (4.40-5.60); RDW 14.3 % (11.5-14.5); WBC 8.97 X 10*3/uL (4.50-10.00)
== END | disposition home or self-care (01) ==
LOC: LABPAT 11:38
PROVIDERS: ATTEND Surgery
DX: Z01.812 Encounter for preprocedural laboratory examination (principal)
CPT/HCPCS: 85025; 86850; 86900; 86901

== ENCOUNTER 2025-03-05 05:32 | Inpatient (IN) | payer BC ==
[2025-03-05] MEDS: IV FLUID CONTINUATION 1,000 ML IV ONE ×3 (06:15)
[2025-03-05] MEDS: LACTATED RINGERS 1,000 ML IV SCH (06:48)
[2025-03-05] MEDS: ONDANSETRON 4 MG/2 ML VIAL IVP ONE (06:48)
[2025-03-05] MEDS: DEXAMETHASONE SOD PHOSPHATE 4 MG/ML 1 ML VIAL IV ONE (06:48)
[2025-03-05] MEDS ORDERED: HYDROmorphone 0.5 MG/0.5 ML SYRINGE IVP PRN (07:00)
[2025-03-05] MEDS ORDERED: MIDAZOLAM 2 MG/2 ML VIAL IV PRN (07:00)
[2025-03-05] MEDS ORDERED: SUCCINYLCHOLINE CHLORIDE 200 MG/10 ML VIAL IV ONE (07:25)
[2025-03-05] MEDS ORDERED: MIDAZOLAM 2 MG/2 ML VIAL ONE (07:25)
[2025-03-05] MEDS ORDERED: HEPARIN SODIUM,PORCINE 10,000 UNIT/ML 1 ML VIAL ONE (07:25)
[2025-03-05] MEDS ORDERED: LIDOCAINE 1% INJ 10MG/ML (20 ML MDV) ONE (07:25)
[2025-03-05] MEDS ORDERED: ROCURONIUM 10 MG/ML (5 ML VIAL) IV ONE (07:25)
[2025-03-05] MEDS ORDERED: NEOSTIGMINE 1 MG/ML 10 ML VIAL ONE (07:25)
[2025-03-05] MEDS ORDERED: fentaNYL (PF) 50 MCG/ML 2 ML AMP ONE (07:25)
[2025-03-05] MEDS ORDERED: VASOPRESSIN 20 UNIT/ML 1 ML VIAL ONE (07:25)
[2025-03-05] MEDS ORDERED: PROTAMINE SULFATE 10 MG/ML 5 ML VIAL ONE (07:25)
[2025-03-05] MEDS ORDERED: PHENYLEPHRINE-0.9% NACL SYG 1,000 MCG/10 ML SYRINGE ONE (07:25)
[2025-03-05] MEDS ORDERED: GLYCOPYRROLATE 0.2 MG/ML 2 ML VIAL ONE (07:25)
[2025-03-05] MEDS ORDERED: PROPOFOL 10 MG/ML 20 ML VIAL IV ONE (07:25)
[2025-03-05] MEDS ORDERED: ePHEDrine 50 MG/ML 1 ML VIAL ONE (07:25)
[2025-03-05] MEDS: ceFAZolin 2 GM in SODIUM CHLORIDE 0.9% 500 ML 500 ML IRRIGATION ONE (07:30)
[2025-03-05] MEDS: HEPARIN SODIUM (1,000 UNIT/ML) 2,000 UNIT in SODIUM CHLORIDE 0.9% 1,000 ML IRRIGATION ONE (07:30)
[2025-03-05] MEDS: ceFAZolin 2 GM in DEXTROSE 5% IN WATER 50 ML IVPB PRN (07:30)
[2025-03-05] MEDS: LIDOCAINE 1% INJ 10MG/ML (20 ML MDV) SQ ONE (08:20)
[2025-03-05] MEDS: THROMBIN (BOVINE) 5,000 UNIT VIAL TOPICAL ONE (08:37)
[2025-03-05] MEDS: LACTATED RINGERS 1,000 ML IV ONE (09:35)
[2025-03-05] MEDS ORDERED: HYDROcodone/APAP 5-325MG 1 EACH TAB PO PRN (10:12)
[2025-03-05] MEDS ORDERED: TRIMETHOBENZAMIDE 100 MG/ML 2 ML VIAL IM PRN (10:12)
[2025-03-05] MEDS ORDERED: MAG HYDROX/AL HYDROX/SIMETH 30 ML CUP PO PRN (10:12)
[2025-03-05] MEDS ORDERED: ACETAMINOPHEN TAB 325 MG TAB PO PRN (10:12)
[2025-03-05] MEDS: PHENYLEPHRINE 10 MG/ML VIAL IV ONE ×3 (10:15→10:25)
[2025-03-05] MEDS: PHENYLEPHRINE 40 MG in SODIUM CHLORIDE 0.9% 250 ML IV SCH (10:35)
--- NOTE | 2025-03-05 11:58 | P.OP ---
Date of Procedure: 03/05/25 Description of Procedure: Preoperative Diagnosis: Left high-grade internal carotid artery stenosis Postoperative Diagnosis: Same Procedure: Left carotid endarterectomy with patch angioplasty Anesthesia: GET Surgeon: Tammy Rivas DO Estimated Blood Loss (ml): 25 IV Fluids: See records Urine Output: See records Specimen: Left cervical lymph nodes, left carotid plaque Condition: stable Disposition: PACU Findings and indications: Patient is a 59-year-old male with previously high- grade bilateral internal carotid artery stenosis. He had symptomatic high-grade stenosis of his right internal carotid artery which was previously treated with a carotid endarterectomy recently. He presents today for left asymptomatic carotid endarterectomy with patch angioplasty. Risks and benefits were discussed. He seemed understood and was willing to proceed. Procedure in detail: the patient is brought to the operative suite and laid in a supine position. The area of the neck was prepped and draped in usual sterile fashion after appropriate anesthetic was performed per the anesthesiologist. A timeout was performed in normal fashion antibiotics were administered prior to incision. An oblique incision was then created just anterior to the sternocleidomastoid musculature with a 10 blade scalpel and dissection was carried down to the carotid sheath. The carotid sheath was then entered after facial vein was located and suture ligated in normal fashion. The common carotid, internal carotid, external carotid and superior thyroid arteries were located and dissected free in a meticulous fashion circumferentially and controlled with vessel loops. Attention was then placed to locating the vagus nerve as well as hypoglossal nerve which were both spared. Once controlled, patient was administered heparin and followed with ACTs for appropriate heparinization. Once ACT was appropriate, the proximal and distal aspects of the dissection were then controlled with vascular clamps. Arteriotomy was then created with 11 blade scalpel and extended with Demarco Norman scissors. Prior to the arteriotomy, the previously placed cerebral oximetry was reviewed after clamping and without any significant cerebral oxygen dropping therefore no shunt was required. An endarterectomy was then performed with a Lejunior elevator. The plaque was transected proximally and then feathered at the distal aspect of the internal carotid artery and removed. The area was copiously irrigated with heparinized saline and all free debris was removed. Due to the severity of the disease there was a small marsha in the posterior wall of the proximal internal carotid artery therefore interrupted sutures of 7-0 Prolene were utilized to repair. A 0.8 x 8 cm bovine pericardial patch was then chosen and patch angioplasty was performed with 6-0 Prolene suture in a running fashion. Prior to last sutures being placed the inflow was released flushing any free debris out of the patch. This was reclamped and the internal carotid artery was released revealing good brisk flow and was once again reclamped. The external carotid and superior thyroid artery were then released followed by the common carotid artery to allow any free debris to be flushed into the external system. Final sutures were placed and secured. Internal carotid artery control was then released. Good pulsatile flow was noted through the patch and a Doppler was utilized demonstrating good brisk flow into the internal, external carotid arteries wi thout any signs of obstruction. Hemostasis was then assured with interrupted sutures of 6-0 Prolene as well as thrombin and Gelfoam. A 10-[place]eg[place]e MARLENE drain was then placed in normal fashion and secured with 3-0 nylon suture. The incision was then closed in a multilayer fashion after hemostasis was assured. The skin was then cleansed and dressings were placed. Patient tolerated the procedure well and was following commands and moving all extremities. Patient was then sent to PACU for recovery.
[2025-03-05 13:38] LABS: Glucose,Whole Blood 142 mg/dL (70-110)
[2025-03-05] MEDS: SCOPOLAMINE 1 MG/72 HR PATCH TRANSDERM ONE (13:42)
[2025-03-05] MEDS: ceFAZolin 2 GM in DEXTROSE 5% IN WATER 50 ML IVPB SCH (16:20)
--- NOTE | 2025-03-05 19:33 | P.HPIM ---
History of Present Illness H&P Date: 03/05/25 Chief Complaint: Left carotid surgery Very pleasant 59-year-old patient who follows with Dr. Deyanira Barahona. In December 2024 patient underwent a stroke affecting the right frontal area. Patient was discovered to have right internal carotid artery stenosis greater than 70%. 2D echo showed preserved LV function. Patient had left-sided weakness. Patient has Risperdal some decrease in motor function in the left arm. No no trouble walking. Patient today has undergone left carotid endarterectomy with patch angioplasty. Postprocedure able to eat. No localized pain. No new weakness. In the ICU Review of systems: GEN.: None EYES: None HEENT: None NECK: Dressing on operative site RESPIRATORY: None CARDIOVASCULAR: None GASTROINTESTINAL: None GENITOURINARY: None MUSCULOSKELETAL: None LYMPHATICS: None HEMATOLOGICAL: None PSYCHIATRY: None NEUROLOGICAL: [Some decrease in power in the left arm Social history: Smoked a pack a day for about 40 years stopped in December of this year. Alcohol occasionally. Lives with his . 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 In [place] Physical examination: VITAL SIGNS: 98, 46, 13, 120 x 50, 94% GENERAL: BMI 26.9, laying in bed awake comfortable. EYES: Pupils equal. Conjunctiva janes l. HEENT: External appearance of nose and ears normal, oral cavity grossly normal. NECK: JVD not raised; masses not palpable. Dressing over the left carotid area HEART: First and second heart sounds are normal; no edema. LUNGS: Respiratory rate normal; clear to auscultation. ABDOMEN: Soft, nontender, liver spleen not palpable, no masses palpable. PSYCH: Alert and oriented x3; mood and affect janes l. MUSCULOSKELETAL:No Clubbing/cyanosis;muscles-grossly intact NEUROLOGICAL: Cranial nerves grossly intact; no facial asymmetry, power in the left arm 4/5. LYMPHATICS: No lymph nodes palpable in the axilla and neck INVESTIGATIONS, reviewed in the clinical context: March 01: White count 8.9 hemoglobin 13.2 platelets 279 January 06: Potassium 4.3 creatinine 0.9 January 03: LDL 134 TSH 1.8 MR brain with and without contrast and neck with and without contrast [January 03, 2025] right frontal lobe cortical and subcortical ischemic changes. Additional subcortical ischemic changes with the right watershed and inferior right frontal lobe. Solitary ischemic changes within the subcortical left vertex. Severe stenosis of at least 70% right internal carotid artery. At least a moderate narrowing of at least 50% left internal carotid artery. 2D echo: EF 50% Assessment plan: - Left carotid endarterectomy with patch angioplasty by Dr. Mitchell - Essential hypertension Amlodipine 5 mg a day - Hyperlipidemia Lipitor 80 mg nightly - Some left arm mild paresis with specially motor function from prior stroke Patient also received IV cefazolin for infection prophylaxis. IV phenylephrine. Venodyne boots. Care was discussed with patient. Questions answered. Thank you, will follow Past Medical History Past Medical History: CVA/TIA, Hyperlipidemia, Hypertension Additional Past Medical History / Comment(s): stroke in December 2024-some residual weakness left hand(mild decrease in motor skills) & leg History of Any Multi-Drug Resistant Organisms: None Reported Past Surgical History: Tonsillectomy Additional Past Surgical History / Comment(s): surg. for sleep apnea, right carotid endarterectomy December 2024 Past Anesthesia/Blood Transfusion Reactions: Previous Problems w/ Anesthesia Additional Past Anesthesia/Blood Transfusion Reaction / Comment(s): was told heart stopped briefly during carotid surg. in December, he was unsure why Smoking Status: Former smoker - Past Family History Mother Family Medical History: No Reported History Medications and Allergies Home Medications Medication Instructions Recorded Confirmed Type Aspirin 325 mg PO DAILY #90 tab 01/07/25 02/28/25 Rx Atorvastatin [Lipitor] 80 mg PO HS #90 tab 01/07/25 02/28/25 Rx Clopidogrel [Plavix] 75 mg PO DAILY #90 tab 01/07/25 03/04/25 Rx amLODIPine [Norvasc] 5 mg PO DAILY #30 tab 01/07/25 02/28/25 Rx Allergies Allergy/AdvReac Type Severity Reaction Status Date / Time No Known Allergies Allergy Verified 03/05/25 06:22 Physical Exam Vitals: Vital Signs Temp Pulse Pulse Resp BP BP BP 03/05/25 19:00 46 L 13 03/05/25 18:45 47 L 14 03/05/25 18:30 44 L 15 03/05/25 18:15 49 L 16 121/61 03/05/25 18:00 45 L 15 03/05/25 17:45 47 L 14 03/05/25 17:30 45 L 15 03/05/25 17:15 54 L 18 114/61 03/05/25 17:00 56 L 20 03/05/25 16:45 51 L 15 03/05/25 16:30 56 L 12 03/05/25 16:15 48 L 14 03/05/25 16:00 98.0 F 46 L 15 03/05/25 15:45 45 L 14 03/05/25 15:30 49 L 9 L 03/05/25 15:15 54 L 11 L 03/05/25 15:00 51 L 18 03/05/25 14:45 55 L 15 03/05/25 14:30 53 L 15 03/05/25 14:15 47 L 13 118/63 03/05/25 14:00 48 L 15 120/66 03/05/25 13:45 52 L 12 129/69 03/05/25 13:34 97.9 F 50 L 12 03/05/25 12:55 49 L 18 143/50 148/73 03/05/25 12:35 48 L 16 131/44 132/77 03/05/25 12:20 47 L 16 129/60 131/70 03/05/25 12:05 49 L 16 139/76 128/63 03/05/25 11:50 46 L 16 153/77 157/53 03/05/25 11:35 45 L 18 155/52 149/76 03/05/25 11:20 49 L 16 135/70 130/64 03/05/25 11:05 50 L 16 127/70 123/69 03/05/25 10:50 59 L 16 107/57 98/53 03/05/25 10:35 58 L 18 100/54 88/49 03/05/25 10:20 64 16 101/48 98/51 03/05/25 10:05 83 12 115/60 100/52 03/05/25 06:15 98.1 F 74 15 BP Pulse Ox 03/05/25 19:00 94 L 03/05/25 18:45 94 L 03/05/25 18:30 95 03/05/25 18:15 94 L 03/05/25 18:00 94 L 03/05/25 17:45 95 03/05/25 17:30 94 L 03/05/25 17:15 94 L 03/05/25 17:00 94 L 03/05/25 16:45 94 L 03/05/25 16:30 94 L 03/05/25 16:15 97 03/05/25 16:00 97 03/05/25 15:45 97 03/05/25 15:30 96 03/05/25 15:15 96 03/05/25 15:00 96 03/05/25 14:45 97 03/05/25 14:30 96 03/05/25 14:15 96 03/05/25 14:00 95 03/05/25 13:45 95 03/05/25 13:34 94 L 03/05/25 12:55 98 03/05/25 12:35 97 03/05/25 12:20 97 03/05/25 12:05 98 03/05/25 11:50 98 03/05/25 11:35 98 03/05/25 11:20 97 03/05/25 11:05 99 03/05/25 10:50 97 03/05/25 10:35 99 03/05/25 10:20 100 03/05/25 10:05 97 03/05/25 06:15 175/100 99 Intake and Output 03/05/25 03/05/25 03/05/25 06:59 14:59 22:59 Intake Total 400 2245.494 291.379 Output Total 400 600 Balance 400 1845.494 -308.621 Intake: IV 400 2172 200 Lactated Ringers 1,000 ml 20 100 @ 20 mls/hr IV .Q[facility]H [facility] Rx#:[id number] ceFAZolin 2 gm In 100 Dextrose 5% in Water 50 ml @ 100 mls/hr IVPB ONCE PRN Rx#:[id number] Intake, IV Titration 73.494 91.379 Amount Phenylephrine 40 mg In 73.494 91.379 Sodium Chloride 0.9% 250 ml @ 0.5 MCG/KG/MIN 16. 212 mls/hr IV .[id number] [facility] Rx#:[id number] Output: Urine 400 600 Other: Voiding Method Indwelling Catheter Weight 85.1 kg ABP, PAP, CO, CI - Last 8 Hours Arterial Blood Pressure 120/50 Arterial Blood Pressure 122/52 Arterial Blood Pressure 129/50 Arterial Blood Pressure 120/50 Arterial Blood Pressure 125/54 Arterial Blood Pressure 134/54 Arterial Blood Pressure 129/52 Arterial Blood Pressure 130/52 Arterial Blood Pressure 120/49 Arterial Blood Pressure 120/51 Arterial Blood Pressure 123/60 Arterial Blood Pressure 122/53 Arterial Blood Pressure 129/54 Arterial Blood Pressure 127/53 Arterial Blood Pressure 126/56 Arterial Blood Pressure 123/66 Arterial Blood Pressure 130/58 Arterial Blood Pressure 142/61 Arterial Blood Pressure 139/61 Arterial Blood Pressure 139/63 Arterial Blood Pressure 140/61 Results Labs: Abnormal Lab Results - Last 24 Hours (Table) 03/05/25 Range/Units 13:37 POC Glucose (mg/dL) 142 H (70-110) mg/dL Thrombosis Risk Factor Assmnt - Choose All That Apply Each Factor Represents 1 point: Age 41-60 years Each Risk Factor Represents 2 Points: Major surgery Thrombosis Risk Factor Assessment Total Risk Factor Score: 3 Thrombosis Risk Factor Assessment Level: Moderate Risk
[2025-03-05] MEDS: BENZOCAINE/MENTHOL LOZENG 1 EACH LOZENGE MUCOUS MEM PRN (19:44)
[2025-03-05] MEDS: ATORVASTATIN 80 MG TAB PO SCH (19:47)
[2025-03-06 07:22] LABS: Basophils # (A) 0.03 10*3/uL (0.00-0.10); Basophils % (A) 0.2 %; Eosinophils # (A) 0.07 10*3/uL (0.04-0.35); Eosinophils % (A) 0.5 %; HCT 29.7 % (39.6-50.0); HGB 10.3 g/dL (13.0-17.0); Lymphocytes # (A) 3.68 10*3/uL (0.90-5.00); Lymphocytes % (A) 25.9 %; MCH 31.2 pg (27.0-32.0); MCHC 34.7 g/dL (32.0-37.0); Mean Platelet Volume 8.7 fL (9.5-12.2); Monocytes # (A) 1.12 10*3/uL (0.20-1.00); Monocytes % (A) 7.9 %; Neutrophils # (A) 9.21 10*3/uL (1.80-7.70); Neutrophils % (A) 64.9 %; Platelet Count 242 10*3/uL (140-440); RDW 14.3 % (11.5-14.5)
[2025-03-06 07:44] LABS: African American GFR (CKD) >90 (>60 ml/min/1.73 sqM); Anion Gap 7 mmol/L; Blood Urea Nitrogen 13 mg/dL (9-20); Carbon Dioxide 24 mmol/L (22-30); Chloride 106 mmol/L (98-107); Glucose 117 mg/dL (74-99); Non-African American GFR(CKD) >90 (>60 ml/min/1.73 sqM); Potassium 4.1 mmol/L (3.5-5.1); Sodium 137 mmol/L (137-145)
[2025-03-06 08:20] VITALS: BP 140/79; TEMP 98
[2025-03-06] MEDS: CLOPIDOGREL 75 MG TAB PO SCH (08:33)
[2025-03-06] MEDS: ASPIRIN 81 MG PO SCH (08:33)
[2025-03-06 10:09] VITALS: PULSE 72; RESP 14
--- NOTE | 2025-03-06 10:11 | P.DS ---
Providers Date of admission: 03/05/25 05:32 Expected date of discharge: 03/06/25 Attending physician: Tammy Harry DO Consults: 03/05/25 12:01 Consult Physician Routine Consulting Provider: Hernesto Ryder Consult Reason/Comments: Medical management Do you want consulting provider notified?: Yes Primary care physician: Deyanira Barahona MD Hospital Course: 59-year-old male with previously high-grade bilateral internal carotid artery stenosis with symptomatic high-grade stenosis of the right ICA which was previously treated with carotid endarterectomy recently he was scheduled yesterday for left asymptomatic carotid endarterectomy with patch angioplasty. He is postop day #1 for left carotid endarterectomy with patch angioplasty. Patient was admitted to the ICU requiring Parker-Synephrine for blood pressure maintenance which was discontinued this morning. He has no focal deficits. Pain has been well-managed and is tolerable. Patient is tolerating a regular diet, no difficulty with swallowing. Approximately 20 to 30 mL serosanguineous drainage in MARLENE drain which was removed. Incision is well-approximated with some minimal swelling no hematoma noted around incision. Blood pressures off Parker- Synephrine are soft will hold home blood pressure medications until patient follows up with his primary care physician. Discharge instructions reviewed with patient and along with holding blood pressure medications. Exam General appearance: The patient is alert, oriented, appears in no acute distress. HET: Head is normocephalic and atraumatic. Pupils are equal and reactive. Neck: Supple. Left side of neck incision well-approximated, mild swelling surrounding no hematoma. MARLENE drain removed. Heart: Regular. Lungs: Equal expansion, normal respiratory effort. Abdomen: Soft, nontender, nondistended. Extremities: Normal skin color and turgor. Neurological: No focal deficits. Strength and sensation are grossly intact. Assessment/plan 1. Asymptomatic left internal carotid artery stenosis status post left carotid endarterectomy with patch angioplasty 2. History of symptomatic right internal carotid artery stenosis status post right carotid endarterectomy with patch angioplasty Resume Plavix 75 mg daily, will change aspirin 325 mg daily to 81 mg daily. Patient instructed to hold home blood pressure medications and follow-up with h is PCP within 1 week regarding resuming blood pressure medications. Discharge instructions reviewed with patient and . Discontinue Rivas catheter, encourage ambulation. Plan on discharge after patient voids. The impression and plan of care has been dictated as directed. Dr. May Solis I performed a history and examination of this patient, discussed the same with the dictator. I agree with the dictator's note ,documented as a scribe. Any additional findings or plans will be noted. Procedures: Procedure: Left carotid endarterectomy with patch angioplasty Patient Condition at Discharge: Stable Plan - Discharge Summary Discharge Rx Participant: No New Discharge Prescriptions: Continue Clopidogrel [Plavix] 75 mg PO DAILY #90 tab Atorvastatin [Lipitor] 80 mg PO HS #90 tab No Action Aspirin 325 mg PO DAILY #90 tab amLODIPine [Norvasc] 5 mg PO DAILY #30 tab Discharge Medication List Aspirin 325 mg PO DAILY #90 tab 01/07/25 [Rx] Atorvastatin [Lipitor] 80 mg PO HS #90 tab 01/07/25 [Rx] Clopidogrel [Plavix] 75 mg PO DAILY #90 tab 01/07/25 [Rx] amLODIPine [Norvasc] 5 mg PO DAILY #30 tab 01/07/25 [Rx] Follow up Appointment(s)/Referral(s): Tammy Sung DO [STAFF PHYSICIAN] - 2 Weeks Deyanira Barahona MD [Primary Care Provider] - 1 Week Patient Instructions/Handouts: Clopidogrel (By mouth) Activity/Diet/Wound Care/Special Instructions: No strenuous activity or heavy lifting greater than 10 pounds. May shower tomorrow, but no tub bathing or soaking. Watch incision site for infection including redness, drainage, or temperature greater than 100.4. If you notice he symptoms please call office Discharge Disposition: HOME SELF-CARE
--- NOTE | 2025-03-06 13:36 | P.PN ---
Progress Note - Text Progress Note Date: 03/06/25 Chief Complaint: Left carotid surgery Very pleasant 59-year-old patient who follows with Dr. Deyanira Barahona. In December 2024 patient underwent a stroke affecting the right frontal area. Patient was discovered to have right internal carotid artery stenosis greater than 70%. 2D echo showed preserved LV function. Patient had left-sided weakness. Patient has Risperdal some decrease in motor function in the left arm. No no trouble walking. Patient today has undergone left carotid endarterectomy with patch angioplasty. Postprocedure able to eat. No localized pain. No new weakness. In the ICU March 06: Doing well. Up and about. Eating well. Speech normal. No dizziness or lightheadedness. Postop blood loss anemia. Ferrous sulfate added. Discussed with patient and . Follow-up with PCP. Social history: Smoked a pack a day for about 40 years stopped in December of this year. Alcohol occasionally. Lives with his . 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 Conjunctiva janes l. HEENT: External appearance of nose and ears normal, oral cavity grossly normal. NECK: JVD not raised; masses not palpable. Dressing over the left carotid area HEART: First and second heart sounds are normal; no edema. LUNGS: Respiratory rate normal; clear to auscultation. ABDOMEN: Soft, nontender, liver spleen not palpable, no masses palpable. PSYCH: Alert and oriented x3; mood and affect janes l. MUSCULOSKELETAL:No Clubbing/cyanosis;muscles-grossly intact NEUROLOGICAL: Cranial nerves grossly intact; no facial asymmetry, power in the left arm 4/5. INVESTIGATIONS, reviewed in the clinical context: March 06: White count 14.2 hemoglobin 10.3 platelets 242 potassium 4.1 creatinine 0.68 March 01: White count 8.9 hemoglobin 13.2 platelets 279 January 06: Potassium 4.3 creatinine 0.9 January 03: LDL 134 TSH 1.8 MR brain with and without contrast and neck with and without contrast [January 03, 2025] right frontal lobe cortical and subcortical ischemic changes. Additional subcortical ischemic changes with the right watershed and inferior right frontal lobe. Solitary ischemic changes within the subcortical left vertex. Severe stenosis of at least 70% right internal carotid artery. At least a moderate narrowing of at least 50% left internal carotid artery. 2D echo: EF 50% Assessment plan: - Left carotid endarterectomy with patch angioplasty by Dr. Mitchell - Acute postop blood loss anemia expected from surgery Ferrous sulfate 325 mg p.o. daily - Reactive leukocytosis with no clinical evidence of infection. Denies any urinary or respiratory symptoms. Incision healing well per surgery - Essential hypertension Amlodipine 5 mg a day - Hyperlipidemia Lipitor 80 mg nightly - Some left arm mild paresis with specially motor function from prior stroke Discussed with patient . Follow-up with PCP upon discharge.. Thank you, Past Medical History Past Medical History: CVA/TIA, Hyperlipidemia, Hypertension Additional Past Medical History / Comment(s): stroke in December 2024-some residual weakness left hand(mild decrease in motor skills) & leg History of Any Multi-Drug Resistant Organisms: None Reported Past Surgical History: Tonsillectomy Additional Past Surgical History / Comment(s): surg. for sleep apnea, right carotid endarterectomy December 2024 Past Anesthesia/Blood Transfusion Reactions: Previous Problems w/ Anesthesia Additional Past Anesthesia/Blood Transfusion Reaction / Comment(s): was told heart stopped briefly during carotid surg. in December, he was unsure why Smoking Status: Former smoker
== END 2025-03-06 11:10 | disposition home or self-care (01) | DRG 26 ==
LOC: 2ORMAIN 05:32 → 2SICU 12:59
PROVIDERS: ADMIT Surgery; ATTEND Surgery
PROC: 03UL3JZ Supplement Left Internal Carotid Artery with Synthetic Substitute, Percutaneous Approach (ICD-10-PCS; 2025-03-05)
PROC: 03CL3ZZ Extirpation of Matter from Left Internal Carotid Artery, Percutaneous Approach (ICD-10-PCS; principal; 2025-03-05 07:30)
DX: I65.22 Occlusion and stenosis of left carotid artery (principal); D62 Acute posthemorrhagic anemia; I69.354 Hemiplegia and hemiparesis following cerebral infarction affecting left non-dominant side; I10 Essential (primary) hypertension; E78.5 Hyperlipidemia, unspecified; Z79.02 Long term (current) use of antithrombotics/antiplatelets; Z79.82 Long term (current) use of aspirin; Z79.899 Other long term (current) drug therapy; Z87.891 Personal history of nicotine dependence; Z86.79 Personal history of other diseases of the circulatory system
CPT/HCPCS: 80048; 85025; 88304; 88305; 88311